=== PATIENT | male | born 1980 | race Caucasian/White ===

== ENCOUNTER 2025-02-15 13:08 | Inpatient (IN) | payer BC, SELFPAY ==
[2025-02-15] VITALS (29 sets, daily range): BP systolic 63–173; BP diastolic 40–106; BMI 39.4
--- NOTE | 2025-02-15 08:57 | ED.GENMED ---
History of Present Illness
<Castillo Viveros PA-C - Last Filed: 02/15/25 13:32>
General
Chief Complaint: Chest Pain
Time Seen by Provider: 02/15/25 08:44
History of Present Illness
History of Present Illness:
45-year-old male with history of hypertension and osx-zglgfle-jwbhjpasd diabetes presents to the emergency department for evaluation of exertional chest pain ongoing for the past several weeks. States he had a similar event in July, was
evaluated at [facility] emergency department, he states at that point he had normal labs and an echocardiogram that was unrevealing. He was noted to be hypertensive and hyperglycemic and was started on lisinopril and metformin at that time.
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 He did note that at that time he had gradual decrease in his hemoglobin and thus he took it upon himself to begin taking oral iron supplementation which she feels helped his exertional
symptoms. However over the past 2 to 3 weeks his symptoms have returned. Typically they resolve at rest. Today he was walking and carrying things at work when the pain began. Took 581 mg aspirin at work prior to arrival of EMS. Reports
consistent chest pressure at this point. No fevers or chills. Does note that he has a significant family history of precocious coronary disease including his father who had CABG x 3 before the age of 50.
Review of Systems
<Castillo Viveros PA-C - Last Filed: 02/15/25 13:32>
Review of Systems
Allergies reviewed?: Yes
All Other Systems: ROS reviewed and negative except as documented in HPI and ROS
Phy Exam
<Castillo Viveros PA-C - Last Filed: 02/15/25 13:32>
Physical Exam
Physical Exam:
GEN: Well appearing, NAD, WDWN
HEENT: Oral mucosa moist, no scleral icterus
Cardiac: Regular rate and rhythm, no murmurs
Lung: No respiratory distress, no tachypnea, lungs clear to auscultation bilaterally
MSK: No gross deformity or injuries
Skin: Good color, no pallor or jaundice, no rashes
Neuro: AO x3, moves all extremities freely
Psych: Calm, cooperative
Scores
<Castillo Viveros PA-C - Last Filed: 02/15/25 13:32>
Heart Score for Chest Pain Patients
STEMI patient?: No
History: Highly Suspicious
ECG: Normal
Age: >45 - <65 years
Risk Factors: >/= 3 Risk Factors or History of CAD
Troponin: >1 - <3 x Normal Limit
Heart Score for Chest Pain Patients: 6
Heart Score Risk: 20.3% MACE over next 6 weeks
Course
<Castillo Viveros PA-C - Last Filed: 02/15/25 13:32>
Orders/Labs/Results
Orders:
Orders
02/15/25 08:46
EKG [Electrocardiogram (*1)] Urgent
Reason for Study: Chest Pain
EKG- Treatment ONCE
02/15/25 08:50
CMP [Comprehensive Metabolic Panel] Urgent
Complete Blood Count/With Diff Urgent
Troponin I Urgent
02/15/25 08:55
Nitroglycerin Sublingual [Nitrostat (Sublingual)] 0.4 mg SL NOW STA
02/15/25 08:56
CR Chest - 2 Views Urgent
Comment:
Reason For Exam: chest pain
02/15/25 09:00
Nitroglycerin Sublingual [Nitrostat (Sublingual)] 0.4 mg .ROUTE .STK-MED ONE
02/15/25 10:36
EKG- Treatment ONCE
02/15/25 11:00
EKG [Electrocardiogram (*1)] Urgent
Reason for Study: Chest Pain
02/15/25 11:07
Troponin I Routine
02/15/25 12:09
Heparin 4,000 units IV NOW STA
Pharmacy Request to Place See Dose Instructions PO NOW STA
Discontinue all Active Warfarin orders?: Yes
Nursing to Place Non Medication Order As Directed
Physician Order: PTT 6 hours after initial start of Heparin infusion
02/15/25 12:14
Nitroglycerin Sublingual [Nitrostat (Sublingual)] 0.4 mg SL NOW STA
02/15/25 12:15
Heparin 69955 Units/250 ml 25,000 units in 250 ml IV PER PROTOCOL
Weight to be used for heparin protocol in kilograms (kg):: 114.1
Protocol:: Cardiac Tx/Acute Coronary
PTT Goal Range to be used:: PTT 73 to 111 seconds
Order type:: Initial
INITIAL Infusion Dose (UNITS/KG/hr) & then follow protocol:: 15 units/kg/hr
Infusion Dose in UNITS/hr & then follow protocol (UNITS/hr):: 1,500
INFUSION RATE in mL/hr & then follow protocol (mL/hr):: 15
PTT less than or equal to 64 seconds:: Increase rate by 200 units/hr (+ 2 mL/hr)
PTT 64.1 to 72.9 seconds:: Increase rate by 100 units/hr (+ 1 mL/hr)
PTT 73 to 111 seconds:: Target Range. No change in rate.
PTT 111.1 to 130.9 seconds:: Decrease rate by 100 units/hr (- 1 mL/hr)
PTT 131 to 199.9 seconds:: HOLD for 1 hr. Then decrease rate by 200 units/hr (- 2 mL/hr)
PTT greater than or equal to 200 seconds:: HOLD for 2 hrs & Notify Provider. Then decrease by 200 units/hr (-
2 mL/hr)
Lab follow-up:: Each change, PTT q6h until 2 consecutive are therapeutic. Then PTT
daily.
02/15/25 12:16
Consult Cardiology [CARDIOLOGY CONSULT] Urgent
Consulting Provider: Frank Wood
Was physician already notified: Yes
PTT Urgent
Comment: Obtain baseline before beginning heparin infusion if not already collected
02/15/25 12:19
Heparin 48666 Units/250 ml 25,000 units in 250 ml .ROUTE .STK-MED
02/15/25 12:47
Admit/Transfer Patient As Directed
Co-Sign Provider:
Level of Care: Inpatient admission
Assign to:: IVU
Physician / Group: Monserrat
Diagnosis: NTEMI
Reason for Hospitalization: NSTEMI
Expected length of stay greater than two midnights?: Yes
ELOS- Estimated Length of Stay in days: 3
I certify the patient meets the requirements for IP care: Yes
PRN Pain Medication Management As Directed
May give lesser potent ordered pain med per pt: Yes
preference::
Protocol:: Medication orders for pain may be administered in a
manner that supports deferring to patient preference
when the pt is:
- Requesting an ordered lesser potent pain medication.
Least to most potent pain medications are defined
as: acetaminophen < NSAID < tramadol < opioids
(morphine, oxycodone, hydromorphone).
- Requesting a lesser dose of the same medication IF
ORDERED.
- Requesting a less intrusive route of administration
if both routes are prescribed by the provider (PO <
IV).
02/15/25 12:49
Code Status As Directed
Resuscitation Status: Full Code
02/15/25 13:[address] See Dose Instructions IV DIRECTED
02/15/25 15:00
Troponin I Q6H
02/15/25 21:00
Troponin I Q6H
02/16/25 03:00
Troponin I Q6H
Abnormal Lab Results
02/15/25 02/15/25
08:50 11:07
Absolute Monos (auto) 0.7 H 10^3/uL
(0.1-0.6)
Glucose 131 H mg/dl
(70-99)
Troponin I 0.107 H* D ng/ml
02/15/25 08:50
02/15/25 08:50
Vital Signs
Initial and Last Documented VS:
Initial Vital Signs
Temp Pulse Resp BP Pulse Ox
98.0 F 72 18 163/92 98
02/15/25 08:42 02/15/25 08:42 02/15/25 08:42 02/15/25 08:42 02/15/25 08:42
Last Documented Vital Signs
Temp Pulse Resp BP Pulse Ox
98.0 F 81 13 150/84 96
02/15/25 08:42 02/15/25 12:30 02/15/25 12:30 02/15/25 12:25 02/15/25 09:30
<Teri Gibson MD - Last Filed: 02/15/25 12:46>
Orders/Labs/Results
Orders:
Orders
02/15/25 08:46
EKG [Electrocardiogram (*1)] Urgent
Reason for Study: Chest Pain
EKG- Treatment ONCE
02/15/25 08:50
CMP [Comprehensive Metabolic Panel] Urgent
Complete Blood Count/With Diff Urgent
Troponin I Urgent
02/15/25 08:55
Nitroglycerin Sublingual [Nitrostat (Sublingual)] 0.4 mg SL NOW STA
02/15/25 08:56
CR Chest - 2 Views Urgent
Comment:
Reason For Exam: chest pain
02/15/25 09:00
Nitroglycerin Sublingual [Nitrostat (Sublingual)] 0.4 mg .ROUTE .STK-MED ONE
02/15/25 10:36
EKG- Treatment ONCE
02/15/25 11:00
EKG [Electrocardiogram (*1)] Urgent
Reason for Study: Chest Pain
02/15/25 11:07
Troponin I Routine
02/15/25 12:09
Heparin 4,000 units IV NOW STA
Pharmacy Request to Place See Dose Instructions PO NOW STA
Discontinue all Active Warfarin orders?: Yes
Nursing to Place Non Medication Order As Directed
Physician Order: PTT 6 hours after initial start of Heparin infusion
02/15/25 12:14
Nitroglycerin Sublingual [Nitrostat (Sublingual)] 0.4 mg SL NOW STA
02/15/25 12:15
Heparin 22991 Units/250 ml 25,000 units in 250 ml IV PER PROTOCOL
Weight to be used for heparin protocol in kilograms (kg):: 114.1
Protocol:: Cardiac Tx/Acute Coronary
PTT Goal Range to be used:: PTT 73 to 111 seconds
Order type:: Initial
INITIAL Infusion Dose (UNITS/KG/hr) & then follow protocol:: 15 units/kg/hr
Infusion Dose in UNITS/hr & then follow protocol (UNITS/hr):: 1,500
INFUSION RATE in mL/hr & then follow protocol (mL/hr):: 15
PTT less than or equal to 64 seconds:: Increase rate by 200 units/hr (+ 2 mL/hr)
PTT 64.1 to 72.9 seconds:: Increase rate by 100 units/hr (+ 1 mL/hr)
PTT 73 to 111 seconds:: Target Range. No change in rate.
PTT 111.1 to 130.9 seconds:: Decrease rate by 100 units/hr (- 1 mL/hr)
PTT 131 to 199.9 seconds:: HOLD for 1 hr. Then decrease rate by 200 units/hr (- 2 mL/hr)
PTT greater than or equal to 200 seconds:: HOLD for 2 hrs & Notify Provider. Then decrease by 200 units/hr (-
2 mL/hr)
Lab follow-up:: Each change, PTT q6h until 2 consecutive are therapeutic. Then PTT
daily.
02/15/25 12:16
Consult Cardiology [CARDIOLOGY CONSULT] Urgent
Consulting Provider: Frank Wood
Was physician already notified: Yes
PTT Urgent
Comment: Obtain baseline before beginning heparin infusion if not already collected
02/15/25 12:19
Heparin 19801 Units/250 ml 25,000 units in 250 ml .ROUTE .STK-MED
02/15/25 12:47
Admit/Transfer Patient As Directed
Co-Sign Provider:
Level of Care: Inpatient admission
Assign to:: IVU
Physician / Group: Monserrat
Diagnosis: NTEMI
Reason for Hospitalization: NSTEMI
Expected length of stay greater than two midnights?: Yes
ELOS- Estimated Length of Stay in days: 3
I certify the patient meets the requirements for IP care: Yes
PRN Pain Medication Management As Directed
May give lesser potent ordered pain med per pt: Yes
preference::
Protocol:: Medication orders for pain may be administered in a
manner that supports deferring to patient preference
when the pt is:
- Requesting an ordered lesser potent pain medication.
Least to most potent pain medications are defined
as: acetaminophen < NSAID < tramadol < opioids
(morphine, oxycodone, hydromorphone).
- Requesting a lesser dose of the same medication IF
ORDERED.
- Requesting a less intrusive route of administration
if both routes are prescribed by the provider (PO <
IV).
02/15/25 12:49
Code Status As Directed
Resuscitation Status: Full Code
02/15/25 13:[address] See Dose Instructions IV DIRECTED
02/15/25 15:00
Troponin I Q6H
02/15/25 21:00
Troponin I Q6H
02/16/25 03:00
Troponin I Q6H
Abnormal Lab Results
02/15/25 02/15/25
08:50 11:07
Absolute Monos (auto) 0.7 H 10^3/uL
(0.1-0.6)
Glucose 131 H mg/dl
(70-99)
Troponin I 0.107 H* D ng/ml
02/15/25 08:50
02/15/25 08:50
Vital Signs
Initial and Last Documented VS:
Initial Vital Signs
Temp Pulse Resp BP Pulse Ox
98.0 F 72 18 163/92 98
02/15/25 08:42 02/15/25 08:42 02/15/25 08:42 02/15/25 08:42 02/15/25 08:42
Last Documented Vital Signs
Temp Pulse Resp BP Pulse Ox
98.0 F 81 13 150/84 96
02/15/25 08:42 02/15/25 12:30 02/15/25 12:30 02/15/25 12:25 02/15/25 09:30
<Castillo Viveros PA-C - Last Filed: 02/15/25 13:32>
MDM/Problems Addressed
MDM/Problems Addressed:
45-year-old male presents with exertional chest pain that seems to be worsening over the past several weeks. His initial EKG was nonischemic and initial troponin negative thus he was kept in the emergency department for reevaluation and repeat
cardiac enzymes and EKG. While repeat EKG is unchanged his cardiac enzymes became markedly elevated. His pain did improve after a repeat dose of nitroglycerin however he had a vagal episode resulting in hypotension and bradycardia, was treated
with IV fluids with rapid improvement. He was seen by hospitalist as well as cardiology at the bedside and the plan was made to take the patient for cardiac catheterization later today. Maintained on IV heparin in the ED.
<Castlilo Viveros PA-C - Last Filed: 02/15/25 13:32>
Comment
Comment:
EKG independently interpreted by me shows normal sinus rhythm at a rate of [address] changes concerning for ischemia
*Critical Care Note
Total Time (30-74mins, 75-104mins- exclusive of procedures): 50 minutes
comment:
Critical care time: 50 minutes
Critical care time was exclusive of: Separately billable procedures, treating other patients, and teaching time
Critical care was necessary to treat or prevent imminent or life-threatening deterioration of the following conditions: NSTEMI
Critical care time spent personally by me on the following activities:
[x] Review of old charts
[x] Obtaining history from patient or surrogate
[x] Ordering and review of the laboratory studies
[x] Ordering and review of radiographic studies
[x] Ordering and performing treatments and interventions
[x] Patient patient's response to treatment
[x] Development of treatment plan with patient or surrogate
<Castillo Viveros PA-C - Last Filed: 02/15/25 13:32>
Update Note
Update Note:
Reviewed MyChart records on patient's phone from [facility] in July. Initial high-sensitivity troponin level of 34 down trended to 27 while in the ED. He did have a transthoracic echocardiogram showing grade 1 diastolic
dysfunction and mild aortic sclerosis without stenosis or regurgitation, EF of 60 to 65%
ED Attending Note
<Castillo Viveros PA-C - Last Filed: 02/15/25 13:32>
-
Portions of this chart may have been created with voice recognition software.� Occasional wrong word or��sound alike� substitutions may have occurred due to the inherent limitations of voice recognition software.
<Teri Gibson MD - Last Filed: 02/15/25 12:46>
ED Attending Note
Patient seen and examined by attending physician: Yes
I performed the substantive portion of visit, reviewed & personally made and approve the management plan that is documented in note by myself or MILA.: Yes
ED Attending Note:
Patient complains of chest tightness on arrival. I evaluated the patient after he received a second nitroglycerin. Within minutes of the second nitroglycerin, he reports feeling clammy and lightheaded. Patient became bradycardic. Patient appears
pale and flushed. Heart sounds bradycardic but regular. Lungs are clear. Patient may have had a hypotensive episode and a vagal response due to the nitroglycerin. However, EKG at this time, which is his third, shows biphasic T waves and ST
depressions in lateral leads. Patient reports that his chest pain is improved now and certainly no worse.
Discharge Plan
Departure
Patient Disposition: Admit
Date of Disposition: 02/15/25
Time of Disposition: 12:29
Admit to: IVU
Presentation/result/management discussed w/ accepting MD/DO: Hospitalist
Discharge Problem:
Acute non-ST elevation myocardial infarction (NSTEMI)
Interventions
Interventions:
*Risk Screen - Suicide Last Done: 02/15/25 08:42
*General Assessment Last Done: 02/15/25 09:05
*Neglect/Abuse Screening Last Done: 02/15/25 08:42
*ED- Fall Risk Assessment Last Done: 02/15/25 09:05
*ED COVID-19 Vaccine History Last Done: 02/15/25 08:42
ED- Cardiac Assessment Last Done: 02/15/25 09:05
[2025-02-15 09:01] LABS: % Basophils 1.4 % (0-2); % Eosinophils 5.9 % (0-6); % Immature Granulocytes 0.2 % (0-0.5); % Lymphocytes 24.1 % (20.5-51.1); % Monocytes 8.2 % (1.7-9.3); % Neutrophils 60.2 % (42.2-75.2); Absolute Basophils 0.1 10^3/uL (0-0.2); Absolute Eosinophils 0.5 10^3/uL (0-0.7); Absolute Monocytes 0.7 10^3/uL (0.1-0.6); Absolute Neutrophils 5.1 10^3/uL (1.4-6.5); Hematocrit 43.3 % (39.0-52.0); Hemoglobin 14.6 g/dL (13.0-18.0); Mean Corp Hgb Conc. 33.7 g/dL (33.0-37.0); Mean Corpuscular Hgb 29.3 pg (27.0-31.0); Mean Corpuscular Volume 86.8 fL (80.0-94.0); Mean Platelet Volume 9.2 fL (7.4-10.4); Nucleated Red Blood Cells % 0 % (-); Platelet Count 268 10^3/uL (130-400); Red Blood Cell Count 4.99 10^6/uL (4.70-6.10); White Blood Cell Count 8.4 10^3/uL (4.8-10.8)
[2025-02-15] MEDS: NITROSTAT (SUBLINGUAL) 0.4 MG SL ×2 (09:03→12:25)
[2025-02-15 09:20] LABS: ALT (SGPT) 27 U/L (0-50); AST (SGOT) 31 U/L (17-59); Albumin 4.3 g/dl (3.5-5.0); Alkaline Phosphatase 70 U/L (38-126); Blood Urea Nitrogen 20 mg/dl (9-20); Calcium 9.2 mg/dl (8.4-10.2); Carbon Dioxide 27 mmol/L (22-30); Chloride 105 mmol/L (98-107); Estimated Creatinine Clearance > 125 ml/min; Glucose 131 mg/dl (70-99); Potassium 4.4 mmol/L (3.5-5.1); Sodium 138 mmol/L (135-145); Total Bilirubin 0.8 mg/dl (0.2-1.3); Total Protein 7.4 g/dl (6.3-8.2); eGFR > 60.00
[2025-02-15 09:29] LABS: Troponin I 0.019 ng/ml
[2025-02-15 11:59] LABS: Troponin I 0.107 ng/ml
[2025-02-15] MEDS: HEPARIN 25000 UNITS/250 ML IV (12:25)
[2025-02-15] MEDS: HEPARIN 4000 UNITS IV (12:29)
[2025-02-15 12:43] LABS: APTT 32.2 Sec (23.4-35.0)
--- NOTE | 2025-02-15 12:54 | HPS.HSE ---
Addendum entered and electronically signed by Guillermo German MD 02/15/25 15:35:
Patient presented with substernal squeezing chest pain that responded to SL NTG
Seen independently and agree with PA note
Lungs clear
CV reg
no chest wall pain
Abd soft, nontender
Ext no edema
EKG lateral ST changes
trop 0.019-->0.107
Imp: probable ACS
poorly controlled NIDDM, +family hx of CAD (father CABG age 49), hyperlipidemia
P:urgent cardio consult
plan heart cath
will need to optimize overall medical condition post cardio evaluation
Original Note:
Family Physician
-
Family Physician: Guillermo Munson
Chief Complaint
-
Chest Pain
History of Present Illness
Patient is a 45 y/o male past medical history of hypertension, diabetes mellitus and obesity who presents with chest pain. Patient report he has been experiencing chest pain for the past few nights, but notes it usually goes away with rest. Today
after arriving at work patient developed a tightness across his chest pain which after about 20-25 minutes did not resolve prompting him to come to the emergency department for evaluation. Upon my evaluation patient is complaining of dizziness and
feeling very sweaty. He is noted to be mildly bradycardic and hypotensive following second dose of sublingual nitroglycerine given in the emergency department.
Medical History
Past Medical History
Past Medical History: Reports Other
Additional Past Medical History:
Diabetes Mellitus, Type II
Essential Hypertension
Class II Obesity
Past Surgical History: Reports Other
Additional Past Surgical History:
Urinary Dilation
Social History
Tobacco: Former Smoker (Quit in his early 20s)
Family History
Family History: Other (Father: CAD with bypass in late 40s)
Allergies / Home Medications
Allergies reflects when Allergies were last updated in [employer].
Home Medications with original date entered in [employer]
Allergy/Medication List:
Allergies
Allergy/AdvReac Type Severity Reaction Status Date / Time
No Known Allergies Allergy Verified 02/15/25 08:57
Home Medications
aspirin 81 mg tablet,delayed release 81 mg PO DAILY 02/15/25
lisinopril 10 mg tablet 10 mg PO DAILY 02/15/25
Review of Systems
-
A 12 point ROS was completed and negative except as noted: Yes
Constitutional: Denies Fever
Respiratory: Reports Trouble Breathing; Denies Cough
Cardiac: Reports Chest Pain and Diaphoresis; Denies Palpitations
Neurological: Reports Dizzy
Physical Exam
Vital Signs
Vital Signs
Temp Pulse Resp BP Pulse Ox
98.0 F 81 13 150/84 96
02/15/25 08:42 02/15/25 12:30 02/15/25 12:30 02/15/25 12:25 02/15/25 09:30
Physical Exam
General: Obese and Other (Appears pale and diaphoretic )
HEENT: Anicteric and Moist mucous membranes
Respiratory: Clear and Non Labored Respirations
Cardiac: S1/S2, Regular Rhythm and Bradycardia
GI: Soft and Non Tender
Rectal: Deferred by Provider
Musculoskeletal: No Clubbing and No Cyanosis
Skin: Warm and Dry
Neuro: Awake, Alert, Oriented and Nonfocal/grossly intact
Psych: Calm
Laboratory Results
-
02/15/25 08:50
02/15/25 08:50
Laboratory Results
APTT 32.2 Sec (23.4-35.0) 02/15/25 12:16
Total Bilirubin 0.8 mg/dl (0.2-1.3) 02/15/25 08:50
AST 31 U/L (17-59) 02/15/25 08:50
ALT 27 U/L (0-50) 02/15/25 08:50
Alkaline Phosphatase 70 U/L (38-126) 02/15/25 08:50
Troponin I 0.107 ng/ml H* D 02/15/25 11:07
Data Reviewed
-
Lab Data: Labs Reviewed by me
Impression/Plan
-
Non-ST Elevation NM
-Urgent Cardiology Consult
-Plan for cardiac cath this afternoon
-Continue heparin drip
-Trend troponin
-Check Fasting Lipid Panel and HgbA1c
Diabetes Mellitus, Type II
-Previously on metformin
-Patient reports prior HgbA1c in the 10s range - Check HgbA1c
-May need insulin based on HgbA1c
-Monitor sugars and continue coverage insulin
Essential Hypertension
-Blood pressure running on the low side
-Hold lisinopril for now
Class II Obesity
-Affects all aspects of care
-Encourage weight loss
-Dietary Consult
DVT proph: Heparin drip
Code Status: Full Code
--- NOTE | 2025-02-15 13:11 | CON.CAR ---
Addendum entered and electronically signed by Frank Wood MD 02/15/25 14:29:
45 yo male with PMH of HTN, hyperlipidemia, DM, morbid obesity, tobacco history, FH of early CAD, is admitted with exertional chest pain. Happened last night, then again this AM. Currently chest pain free after nitro. He reports a holistic
approached to many of his medical issues, and stopped metformin on his own. Exam with RRR, no murmurs, no edema. TnI 0.107. EKG with NSR, biphasic T wave anterior leads.
NSTEMI. ASA 324mg, heparin drip. Cath today. Echo this admission.
BP dropped with nitro. Will wait until after cath to add metoprolol. He already takes lisinopril for HTN.
Start statin.
We discussed that he will need to take prescription meds to manage his health issues.
Original Note:
Consultation
Consultation Request
Date/Time Consultation Requested: 02/15/25 1216
Date/Time Consultation Performed: 02/15/25 1345
Requesting Provider: Castillo DOUGLAS
Performing Provider: Danette ARIAS for Dr. Wood
Reason for Consultation: NSTEMI
Medical History
-
Chief Complaint: Chest discomfort
History of Present Illness:
45 y/o male with HTN, HLD, DM, and obesity who is here for evaluation of chest discomfort that he noted last night with exertion, then today with minimal exertion. It felt like a squeezing across his chest. He was given nitro, which caused vagal
response and BP dropped. He is CP free at the time of my assessment. He took full dose aspirin today (total of 405 mg- 5 baby ASA). Of note, he had CP in Fall and went to [facility], where he saw Dr. Childress, but details of this are not clear.
He denies any personal hx of CAD, but father had premature CAD. He is in no distress at the time of my assessment. Troponin is 0.1. EKG unremarkable.
Past Medical History
Past Medical History: HTN, Hypercholesterolemia and NIDDM
Social History
Tobacco: Former Smoker
Alcohol: Occasional
Drug: None
Personal:
Living: With Family
Family History
Family History: Early CAD (dad)
Allergies / Home Medications
Allergy/AdvReac Type Severity Reaction Status Date / Time
No Known Allergies Allergy Verified 02/15/25 08:57
�Medication �Instructions �Recorded �Confirmed �Type
aspirin 81 mg tablet,delayed 81 mg PO DAILY 02/15/25 02/15/25 History
release
lisinopril 10 mg tablet 10 mg PO DAILY 02/15/25 02/15/25 History
Review of Systems
-
History Source: Patient
All other systems: Negative unless noted
Cardiac: Chest Pain
Physical Exam
Vital Signs
Temp Pulse Resp BP Pulse Ox
98.0 F 81 13 150/84 96
02/15/25 08:42 02/15/25 12:30 02/15/25 12:30 02/15/25 12:25 02/15/25 09:30
Lab Results
02/15/25 08:50
02/15/25 08:50
Troponin I 0.107 ng/ml H* D 02/15/25 11:07
Physical Exam
General: Well Developed, Well Nourished and No Apparent Distress
HEENT: Normocephalic and Anicteric
Respiratory: Clear and Non Labored Respirations
Cardiac: Regular Rhythm
Musculoskeletal: No Edema
Skin: Warm and Dry
Neuro: AO x 3
Psych: Calm
Impression / Plan
-
NSTEMI:
-this diagnosis is threat to life
-I have confirmed that he took full dose aspirin today. Continue ASA. Start statin. Continue IV heparin, which requires intensive monitoring.
-trend EKG's and trops
-obtain echo
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
HTN:
-continue ACEI and monitor
HLD:
-check lipids
-initiate statin
DM:
-took himself off metformin
-check hgbA1C
-management per primary team
Obesity:
-would benefit from weight loss moving forward
Data Reviewed
-
EKG: Tracing Personally Visualized and interpreted (NSR)
Radiology: Report Reviewed by me (No evidence of active cardiopulmonary disease.)
Medical Tests (Nuc Med, Echo etc): Other (echo ordered)
Labs: Labs Reviewed by me
Scores
MARY ALICE for NSTEMI
Age >/= 65: No
>/=3 CAD risk factors-HTN,High Chol,Fam hx CAD,DM,Smoker: Yes
Known CAD (stenosis >/=50%): No
ASA use in past 7 days: Yes
Severe angina (>/= 2 episodes in 24 hrs): Yes
EKG ST Changes >/= 0.5mm: No
Positive cardiac marker: Yes
Score: 4
Risk at 14 days-mortality, new/recurrent SC, severe ischemia: Intermediate Risk- 20% Risk at 14 days- all cause mortality, new or recurrent SC, or severe recurrent ischemia requiring urgent revascularization
--- NOTE | 2025-02-15 16:46 | CM ---
Chart reviewed. Patient is independent of ADLS, lives with his in a [address], 1 KEVIN, 0 DME. Plan is for the patient to return home. CM to follow
--- NOTE | 2025-02-15 18:57 | ITS.CL.CATH ---
Assistant Program Director - Catheterization
Cardiac Catheterization
Procedure Report:
CARDIAC CATHETERIZATION REPORT
Date of Procedure: 02/15/2025
Referring: Frank Wood M.D., Ph.D.
INDICATION: Non-ST elevation myocardial infarction.
PROCEDURE:
1. Left heart catheterization.
2. Coronary angiography.
A total of 22 minutes of procedural/moderate sedation was utilized. An independent medical insurance claims processor was present to assist with and help manage the patient's level of consciousness and physiologic status.
ACCESS:
1. 6 [place] right rate artery using a modified Seldinger technique delete.
CATHETERS:
1. 5 [place] JR4.
2. 5 [place] JL 3.5.
HEMODYNAMIC DATA
Weight (kg): 113.9
AO (s/d/x, mmHg): 138/92/113
LV (s/x mmHg): 138/16
LEFT VENTRICULOGRAPHY: Not performed.
CORONARY ANGIOGRAPHY
Dominance: Right.
Left Main: Normal size, bifurcating vessel. There is no coronary artery disease.
LAD: Normal size vessel giving rise to 2 notable diagonals. There is an ulcerated, hazy 90% lesion in the ostium of the left anterior descending artery that spans the origin of the first diagonal.
Ramus: Congenitally absent
Circumflex: Normal size, nondominant vessel giving rise to 2 obtuse marginals. There is no coronary artery disease.
RCA: Normal size, dominant vessel. There is a 90% lesion in the distal RCA, immediately proximal to the origin of the RPDA.
INTERVENTION(S)
None.
Closure Device: Vascular band.
Radiation (mGy): 592.75
DAP (cm2.Gy): 42.3052
Fluoroscopy time (minutes): 2.8
CONCLUSIONS
1. Right dominant circulation with a 90% lesion in the distal RCA immediately proximal to the origin of the RPDA and a hazy, ulcerated 90% lesion in the ostium of the left anterior descending that spans the origin and involves the first diagonal.
2. Mildly elevated filling pressures (LVEDP = 16 mmHg at 113.9 kg).
RECOMMENDATIONS:
1. Expectant management after cardiac catheterization via right rate approach.
2. Limited weight bearing on the right for one week.
3. Consultation with CT surgery regarding optimal revascularization strategy given two-vessel disease in a diabetic patient involving the proximal LAD.
4. Echocardiogram ordered and pending.
5. Restart heparin drip once vascular band has been removed.
6. OMT/GDMT as hemodynamics will tolerate.
7. Aggressive secondary prevention with high-dose, high potency statin.
8. Aggressive treatment of diabetes.
Copy to: Frank Wood M.D., Ph.D.
Norman Espinosa DO, FACC, FACP
[2025-02-15] MEDS: CRESTOR 20 MG PO (19:18)
[2025-02-15 19:28] LABS: Glucose - Point of Care 99 mg/dl (70-99)
[2025-02-15 21:54] LABS: Glucose - Point of Care 153 mg/dl (70-99)
[2025-02-15 22:00] LABS: APTT 31.3 Sec (23.4-35.0)
[2025-02-16] VITALS (8 sets, daily range): BP systolic 118–142; BP diastolic 67–90; BMI 38.8
[2025-02-16 05:25] LABS: Hematocrit 38.7 % (39.0-52.0); Hemoglobin 12.6 g/dL (13.0-18.0); Mean Corp Hgb Conc. 32.6 g/dL (33.0-37.0); Mean Corpuscular Hgb 28.6 pg (27.0-31.0); Mean Platelet Volume 9.8 fL (7.4-10.4); Platelet Count 275 10^3/uL (130-400); Red Cell Dist. Width 13.2 % (11.5-14.5); White Blood Cell Count 9.9 10^3/uL (4.8-10.8)
[2025-02-16 05:47] LABS: Blood Urea Nitrogen 13 mg/dl (9-20); Calcium 8.9 mg/dl (8.4-10.2); Carbon Dioxide 29 mmol/L (22-30); Chloride 106 mmol/L (98-107); Estimated Creatinine Clearance > 125 ml/min; Glucose 104 mg/dl (70-99); HDL Cholesterol 34 mg/dl; LDL Cholesterol, Calculated 189 mg/dl; Potassium 4.2 mmol/L (3.5-5.1); Sodium 140 mmol/L (135-145); Total Cholesterol 265 mg/dl (50-199); Triglyceride 212 mg/dl (10-149); Very Low Density Lipoprotein 42 mg/dl (0-30); eGFR > 60.00
--- NOTE | 2025-02-16 05:48 | PTCARENOTE ---
Pt NSR on monitor. Denies chest pain or any discomfort. Heparin gtt restarted per MD order. pt independent in the room, call matthews in reach
[2025-02-16] MEDS: ASPIR LOW (ENTERIC COATED) 81 MG PO (07:36)
--- NOTE | 2025-02-16 07:57 | W.PN.CD ---
Today's Communication / Plan
-
Echocardiogram.
CT surgery consult.
HbA1c pending.
Start carvedilol 3.125 mg BID.
Impression / Plan
-
Impression/Plan: 45 y/o male with obesity, HTN, HLD and DM admitted with NSTEMI.
#NSTEMI
-Acute, this diagnosis is threat to life.
-Troponin up to 3.42.
-Cath shows 2V CAD with ostial LAD.
-Echocardiogram pending.
-CT surgery consulted for heart team discussion.
-Start carvedilol 3.125 mg BID.
#HTN
-Chronic, stable.
-Continue ACEI.
-Start carvedilol 3.125 mg BID.
#HLD
-Chronic, stable.
-Total cholesterol = 265, LDL = 189, HDL = 34, Triglycerides = 212.
-High dose, high potency statin.
-Goal LDL < 55.
#DM
-Chronic.
-HbA1c pending.
-Took himself off metformin.
-Management per primary team.
#Obesity
-Chronic.
-He would benefit from weight loss moving forward.
Subjective/Interval History:
Cath yesterday shows 2V CAD including ostial LAD.
Echocardiogram pending.
DATA:
Cardiac Catheterization, 02/15/2025:
CONCLUSIONS
1. Right dominant circulation with a 90% lesion in the distal RCA immediately proximal to the origin of the RPDA and a hazy, ulcerated 90% lesion in the ostium of the left anterior descending that spans the origin and involves the first diagonal.
2. Mildly elevated filling pressures (LVEDP = 16 mmHg at 113.9 kg).
Physical Exam
Vital Signs/Labs
Vital Signs
Temp Pulse Resp BP Pulse Ox
36.9 C 65 16 118/67 97
02/16/25 04:11 02/16/25 04:11 02/16/25 04:11 02/16/25 04:11 02/16/25 04:11
02/14/25 02/15/25 02/16/25
11:59 11:59 11:59
Actual Weight 114.1 kg 112.4 kg
02/16/25 04:30
02/16/25 04:30
APTT 55.0 Sec (23.4-35.0) H 02/16/25 04:30
Triglycerides 212 mg/dl (10-149) H 02/16/25 04:30
LDL Cholesterol, Calc 189 mg/dl 02/16/25 04:30
VLDL Cholesterol, Calc 42 mg/dl (0-30) H 02/16/25 04:30
HDL Cholesterol 34 mg/dl 02/16/25 04:30
LAB Results
02/15/25 02/15/25 02/15/25
08:50 11:07 17:24
Troponin I 0.019 0.107 H* D 1.750 H* D
02/15/25 02/16/25
21:33 04:30
Troponin I 2.870 H* D 3.420 H*
Physical Exam
Constitutional: No acute distress and Comfortable
EENT: Anicteric and Moist mucous membranes
Cardiovascular: Rhythm & rate is regular, Pedal edema is absent, JVD pressure is normal, S1S2 is normal and Murmur/rub/gallop absent
Respiratory: Respiratory effort normal, Lungs clear to auscul., Wheeze Absent, Crackles Absent and Rhonchi Absent
GI: Soft, Distention absent, Flat, Non tender and Normal bowel sounds
Neuro/Psych: AO x 3
Other: Cath Site (Right radial access site is C/D/I.)
Data Reviewed
-
Date of Service: February 16, 2025
Medical Decision Making: Reviewed Test Results, Independent Historian Assessment, Test Interpretation and Review of Case with other Provider
EKG: Tracing Personally Visualized and interpreted and Report Reviewed by me
Echo: Ordered by me
Medical Tests (PFT, Pathology etc): Image Personally Visualized and interpreted, Report Reviewed by me, Discussed with Physician, Discussed with Nurse, Discussed with Patient and Discussed with Family
Labs: Labs Reviewed by me
[2025-02-16 09:00] LABS: Glucose - Point of Care 120 mg/dl (70-99)
[2025-02-16 09:30] LABS: Glycohemoglobin (HgbA1c) 6.1 % (4.0-5.6)
--- NOTE | 2025-02-16 10:27 | CONSULT.CT ---
Consultation
-
Date/Time Consultation Requested: 02/15/25
Date/Time Consultation Performed: 02/16/25
Requesting Provider: Norman Espinosa
Performing Provider: Meg ARIAS for Lorenzo Esparza MD
Reason for Consultation: CABG evaluation
Patient History
Physicians
Family Physician: Guillermo Munson
Outpatient Label Press Operator: none prior to admission
Inpatient Label Press Operator: Norman Espinosa MD
History of Present Illness
45-year-old, wjrqr-ztsm-ppchuyva male with history of hypertension and zjx-uaumjbw-mlbisyqgj diabetes was admitted via the emergency department on 02/15/25 for evaluation of exertional 'squeezing' chest pain ongoing for the past several weeks.
Patient reports a similar event in July, and was evaluated at [facility] emergency department,where he reportedly had normal labs and echocardiogram. At that time, he was noted to be hypertensive and hyperglycemic and was started on
lisinopril and metformin. He did not follow-up with a kitchen and counter worker as an outpatient. He did note that at that time he had gradual decrease in his hemoglobin and thus he took it upon himself to begin taking oral iron supplementation which he feels
helped his exertional symptoms. Patient stopped his metformin due to reading about significant side effects. Patient reports over the past 3 weeks he has experienced exertional chest pressure radiating to his back with walking. Pain resolves with
rest. Patient sought help on 02/15 due to pain lasting more than 25 minutes after sitting. Patient has had significant family history of coronary disease (father had CABG x 3 before age 50). Patient ruled in for NSTEMI with max troponin 3.420 and
was treated with IV heparin. He was given nitro, which caused vagal response. Patient was taken for left heart cath which reported two-vessel coronary disease (LAD and RCA). Patient is pain-free today and hesitant to proceed with surgery.
Pertinent negatives: Denies CVA/TIA, dysphagia, asthma/COPD, hepatitis, surgery or radiation to the thorax, DVT/PE, lower extremity vein stripping, cancer
Past Medical History
Past Medical History: Angina, HTN, NIDDM and Other (UTIs due to ureteral strictures requiring dilation)
Family History
Family Medical History: Early CAD (father-CABG before age 50)
Social History
Alcohol: None
Drug: None
Tobacco: Former Smoker (quit in his 20s)
Personal:
Living: With Family
Employment: Employed
Allergies
Allergy/AdvReac Type Severity Reaction Status Date / Time
No Known Allergies Allergy Verified 02/15/25 08:57
Home Medications
�Medication �Instructions �Recorded �Confirmed �Type
aspirin 81 mg tablet,delayed 81 mg PO DAILY Blood Clot 02/15/25 02/15/25 History
release Prevention/Tx
lisinopril 10 mg tablet 10 mg PO DAILY Blood Pressure 02/15/25 02/15/25 History
Review of Systems
-
History Source: Patient
General: Reports No Symptoms
HEENT: Reports No Symptoms
Respiratory: Reports No Symptoms
Cardiac: Reports Chest Pain (Resolved since admission)
Abdomen/GI: Reports No Symptoms
: Reports Other (UTIs due to ureteral strictures)
Musculoskeletal: Reports No Symptoms
Skin: Reports No Symptoms
Neurological: Reports No Symptoms
Vascular: Reports No Symptoms
Physical Exam
Vital Signs
Temp 98.3 F 02/16/25 07:38
Temp route: Oral 02/16/25 07:38
Pulse 79 02/16/25 10:00
Rhythm: Normal sinus rhythm 02/16/25 07:36
Resp Rate 18 02/16/25 07:38
Blood pressure 136/84 02/16/25 07:36
Blood pressure extremity used: Right upper arm 02/16/25 07:38
Position: Sitting 02/16/25 07:38
MAP (cuff-Chitra Monitor) 98 02/16/25 07:36
SaO2 98 02/16/25 07:38
Oxygen Mode of Delivery Room air 02/16/25 07:38
Acceptable pain level during hospitalization? 1 02/15/25 08:42
Can the patient verbally communicate their pain? Yes 02/16/25 07:36
Pain scale ratin 02/15/25 19:21
Actual Weight 112.4 kg 02/16/25 04:36
Body Mass Index (BMI) 38.8 02/16/25 04:36
Labs
02/16/25 04:30
02/16/25 04:30
APTT 55.0 Sec (23.4-35.0) H 02/16/25 04:30
Hemoglobin A1c 6.1 % (4.0-5.6) H 02/16/25 04:30
Troponin I 3.420 ng/ml H* 02/16/25 04:30
Diagnostic Studies
Left heart Cath 02/15/25:
Left Main: no disease
LAD: Ulcerated, hazy 90% lesion in the ostium of the left anterior descending artery that spans the origin of the first diagonal.
Ramus:Congenitally absent
Circumflex: no disease.
RCA: 90% lesion in the distal RCA, immediately proximal to the origin of the RPDA.
Exam
General: Well Developed and Well Nourished
HEENT: Normocephalic, Anicteric, Moist Mucous Membranes and PERRLA
Respiratory: Clear
Cardiac: S1/S2 and Regular Rhythm
GI: Soft, Non Tender and Normal Bowel Sounds
Rectal: Deferred by Provider
Skin: Warm and Dry
Neuro: AO x 3, No Motor Deficits and Nonfocal/Grossly Intact
Lymph: No Lymphadenopathy
Psych: Calm
Assessment / Plan
-
45-year-old male with two-vessel coronary disease (LAD and RCA)
- Surgeon to review images and discuss case with patient/family and cardiology
-Preop diagnostics ordered including left palmar arch study
-TTE pending
-Patient fearful of receiving propofol as reports mother after receiving this drug
Data Reviewed
-
EKG: Report Reviewed by me and Discussed with Physician
Irrigation System Installer: Report Reviewed by me and Discussed with Physician
Radiology: Report Reviewed by me and Discussed with Physician
Labs: Labs Reviewed by me and Discussed with Physician
[2025-02-16] MEDS: HEPARIN 25000 UNITS/250 ML IV (10:31)
[2025-02-16] MEDS: COREG 3.125 MG PO ×2 (10:35→21:11)
[2025-02-16 11:06] LABS: APTT 54.3 Sec (23.4-35.0)
[2025-02-16 12:14] LABS: Glucose - Point of Care 98 mg/dl (70-99)
[2025-02-16 12:40] LABS: INR 0.99; PT 13.4 Sec (11.4-14.6)
[2025-02-16 12:57] LABS: ALT (SGPT) 27 U/L (0-50); AST (SGOT) 45 U/L (17-59); Albumin 4.2 g/dl (3.5-5.0); Alkaline Phosphatase 78 U/L (38-126); Direct Bilirubin 0.2 mg/dl (0.0-0.4); Total Bilirubin 0.8 mg/dl (0.2-1.3); Total Protein 6.8 g/dl (6.3-8.2)
--- NOTE | 2025-02-16 13:29 | PTCARENOTE ---
02/16/2025 DIABETES EDUCATION
I met with Alvin to review diabetes management, states he was diagnosed with T2D in July 2024 with A1c of 10.2. Was prescribed Metformin, and weaned himself off due to perceived side effects in October,. Admits to not having side
effects himself.
States he prefers holistic measures, changed his diet and last HbA1c prior to inpatient visit was 6.7%, with A1c currently at 6.1%. He checks BS TID at home, is to have a PCP follow up on 02/23/2025.
He states he takes the supplements of Chromium and Berberine for DM control and also Inositol. I educated Mr. Almendarez to ensure all providers are aware of his supplements as they are not regulated, may cause side effects and may interfere with
current medications. RN and MD notified of supplements.
Encouraged patient to follow up with his PCP for post d/c appointment and to monitor medication and blood glucose levels. Information provided on the outpatient DSME program. Patient verbalized understanding.
--- NOTE | 2025-02-16 15:48 | W.PN.HOSP.TC ---
Today's Communication/Plan
-
For potential CABG
Assessment / Plan
Assessment / Plan
Non-ST Elevation HI
-Urgent Cardiology Consult
results of testing reviewed with pt and sig other in room
-Plan for cardiac cath this afternoon
-Continue heparin drip
-Trend troponin
0.107-->1.75-->2.87-->3.42
-Check Fasting Lipid Panel
chol 265/trig 212/ldl 189/hdl 34
started on Crestor 20 mg daily
HgbA1c 6.1%
heart cath: 1. Right dominant circulation with a 90% lesion in the distal RCA immediately proximal to the origin of the RPDA and a hazy, ulcerated 90% lesion in the ostium of the left anterior descending that spans the origin and involves the
first diagonal.
2. Mildly elevated filling pressures (LVEDP = 16 mmHg at 113.[address] surg consulted for potential CABG
Diabetes Mellitus, Type II
-Previously on metformin
-Patient reports prior HgbA1c in the 10s range - Check HgbA1c
-May need insulin based on HgbA1c
-Monitor sugars and continue coverage insulin
Essential Hypertension
-Blood pressure running on the low side
-Hold lisinopril for now
Class II Obesity
-Affects all aspects of care
-Encourage weight loss
-Dietary Consult
DVT proph: Heparin drip
Code Status: Full Code
Anticipated Discharge: > 48 hours
Subjective/Interval History
-
Date of Service: February 16, 2025
No chest pain at this time
Objective Data
-
Labs:
Laboratory Results
02/16/25 02/16/25 02/16/25
04:30 10:46 18:00
WBC 9.9
Hgb 12.6 L
Hct 38.7 L
Plt Count 275
PT 13.4
INR 0.99
APTT 55.0 H 54.3 H Pending
Sodium 140
Potassium 4.2
Chloride 106
Carbon Dioxide 29
BUN 13
Creatinine 0.7
Glucose 104 H
Calcium 8.9
Total Bilirubin 0.8
AST 45
ALT 27
Alkaline Phosphatase 78
Vital Signs:
Vital Signs
Temp Pulse Resp BP Pulse Ox
98.5 F 68 18 125/82 98
02/16/25 12:03 02/16/25 10:35 02/16/25 12:03 02/16/25 10:35 02/16/25 12:03
I&O
02/15/25 02/16/25 02/17/25
06:59 06:59 06:59
Intake Total 525 / 525
Balance 525 / 525
Review of Systems
-
History Source: Patient and Family (sig other)
Respiratory: Denies Cough or Hemoptysis
Cardiac: Denies Chest Pain
Abdomen/GI: Denies Abdominal Pain
Genitourinary: Reports No Symptoms
Musculoskeletal: Reports No Symptoms
Endocrine: Reports No Symptoms
Physical Exam
-
General: Well Developed, Well Nourished and No Apparent Distress
HEENT: Normocephalic, Atraumatic and Moist Mucous Membranes
Respiratory: Clear to Auscultation; Negative Wheezes, Rales or Rhonchi
Cardiac: Regular Rhythm and S1/S2
GI: Soft, Nontender and Nondistended
Musculoskeletal: No Clubbing, No Cyanosis and No Edema
Skin: Warm and Dry
Neuro: Awake, Alert and Oriented
[2025-02-16] MEDS: CRESTOR 20 MG PO (17:11)
[2025-02-16 17:27] LABS: Glucose - Point of Care 100 mg/dl (70-99)
[2025-02-16 18:21] LABS: APTT 94.2 Sec (23.4-35.0)
[2025-02-16 21:16] LABS: Glucose - Point of Care 106 mg/dl (70-99)
--- NOTE | 2025-02-16 21:35 | PTCARENOTE ---
Assumed care of the pt @ 1900. Pt AAOx3 sitting up in chair. SR on the monitor VSS Heparin gtt infusing @ 1900. Plan of care was explained to pt and he verbalized understanding. Call matthews within reach.
[2025-02-17] VITALS (7 sets, daily range): BP systolic 105–127; BP diastolic 64–81; BMI 38.4
[2025-02-17] MEDS: HEPARIN 25000 UNITS/250 ML IV ×2 (00:08→16:25)
[2025-02-17 00:32] LABS: APTT 143.6 Sec (23.4-35.0)
[2025-02-17 04:16] LABS: Hematocrit 38.1 % (39.0-52.0); Hemoglobin 12.9 g/dL (13.0-18.0); Mean Corp Hgb Conc. 33.9 g/dL (33.0-37.0); Mean Corpuscular Hgb 29.4 pg (27.0-31.0); Mean Corpuscular Volume 86.8 fL (80.0-94.0); Mean Platelet Volume 9.7 fL (7.4-10.4); Platelet Count 251 10^3/uL (130-400); Red Blood Cell Count 4.39 10^6/uL (4.70-6.10); Red Cell Dist. Width 12.9 % (11.5-14.5); White Blood Cell Count 9.2 10^3/uL (4.8-10.8)
[2025-02-17 07:21] LABS: Glucose - Point of Care 113 mg/dl (70-99)
[2025-02-17] MEDS: ASPIR LOW (ENTERIC COATED) 81 MG PO (07:25)
[2025-02-17] MEDS: COREG 3.125 MG PO ×2 (07:25→20:51)
--- NOTE | 2025-02-17 09:21 | W.PN.UPDATE ---
Update Note
Progress Note Update
Brief CTS Note
Patient seen and evaluated alongside Dr. Linda.
Planning for robotic assisted LUA to LAD potentially Wednesday.
Would then plan for PCI of the right coronary after 30 days.
Obtain CTA of the chest today for surgical planning.
Remainder of medical management per primary team. Will follow.
--- NOTE | 2025-02-17 09:57 | PTCARENOTE ---
Assumed care of pt from third shift lieutenant RN. AAOx3. NSR on tele, HRs 60s. Heparin gtt infusing at 1700 units/hr. PTT at 0900 therapeutic at 101.0, next PTT due at 1500. R radial dressing CDI. RUE neurovascular checks WDL. Plan for robotic assisted LUA
to LAD next week. Pt OOB to chair, call matthews in reach.
[2025-02-17 11:52] LABS: Glucose - Point of Care 102 mg/dl (70-99)
--- NOTE | 2025-02-17 13:10 | W.PN.HOSP.TC ---
Today's Communication/Plan
-
await surgical intervention
Assessment / Plan
Assessment / Plan
Non-ST Elevation ID
-Urgent Cardiology Consult
results of testing reviewed with pt and sig other in room
-Plan for cardiac cath this afternoon
-Continue heparin drip
-Trend troponin
0.107-->1.75-->2.87-->3.42-->1.62
- Fasting Lipid Panel
chol 265/trig 212/ldl 189/hdl 34
started on Crestor 20 mg daily
HgbA1c 6.1%
heart cath: 1. Right dominant circulation with a 90% lesion in the distal RCA immediately proximal to the origin of the RPDA and a hazy, ulcerated 90% lesion in the ostium of the left anterior descending that spans the origin and involves the
first diagonal.
2. Mildly elevated filling pressures (LVEDP = 16 mmHg at 113.[address] surg consulted for potential CABG. Plan is for robotic assisted LUA to LAD on Wednesday 02/21 and then PCI of Rt coronary after 30 days
Pt notes that he has urethra strictures. If will need a connor placed during surgery, will defer to CT surgery whether Urology should be consulted to place connor
Diabetes Mellitus, Type II
-Previously on metformin
-Patient reports prior HgbA1c in the 10s range - HgbA1c 6.1%
-Monitor sugars and continue coverage insulin
glu 100-113 currently
Essential Hypertension
-Blood pressure running on the low side
-Hold lisinopril for now
Class II Obesity
-Affects all aspects of care
-Encourage weight loss
-Dietary Consult
DVT proph: Heparin drip
Code Status: Full Code
Anticipated Discharge: > 48 hours
Subjective/Interval History
-
Date of Service: February 17, 2025
No chest pain
Objective Data
-
Labs:
Laboratory Results
02/17/25 02/17/25 02/17/25
00:00 03:50 08:24
WBC 9.2
Hgb 12.9 L
Hct 38.1 L
Plt Count 251
APTT Cancelled Cancelled
02/17/25 02/17/25
09:00 15:00
WBC
Hgb
Hct
Plt Count
APTT 101.0 H Pending
Vital Signs:
Vital Signs
Temp Pulse Resp BP Pulse Ox
98.6 F 64 18 125/81 98
02/17/25 11:22 02/17/25 12:00 02/17/25 11:22 02/17/25 11:22 02/17/25 11:22
I&O
02/16/25 02/17/25 02/18/25
06:59 06:59 06:59
Intake Total 525 / 525 120 / 120 480 / 480
Balance 525 / 525 120 / 120 480 / 480
Review of Systems
-
History Source: Patient and Coordinated Provider
Constitutional: Reports No Symptoms
EENT: Reports No Symptoms Reported
Respiratory: Denies Cough or Hemoptysis
Cardiac: Denies Chest Pain
Abdomen/GI: Denies Abdominal Pain
Genitourinary: Reports No Symptoms
Musculoskeletal: Reports No Symptoms
Endocrine: Reports No Symptoms
Physical Exam
-
General: Well Developed, Well Nourished and No Apparent Distress
HEENT: Normocephalic, Atraumatic and Moist Mucous Membranes
Respiratory: Clear to Auscultation; Negative Wheezes, Rales or Rhonchi
Cardiac: Regular Rhythm and S1/S2
GI: Soft, Nontender and Nondistended
Musculoskeletal: No Clubbing, No Cyanosis and No Edema
Skin: Warm and Dry
Neuro: Awake, Alert and Oriented
[2025-02-17 15:51] LABS: APTT 88.5 Sec (23.4-35.0)
[2025-02-17 16:53] LABS: Glucose - Point of Care 89 mg/dl (70-99)
[2025-02-17] MEDS: CRESTOR 20 MG PO (17:01)
--- NOTE | 2025-02-17 19:45 | PTCARENOTE ---
Assumed care of pt from prev nsg shift; Pt AAOX3 w/no c/o CP or SOB; Pt's VSS w/HR in the 50's-60's & BP 114/64 this evening. Pt is SB/SR on telemetry monitoring. Pt w/IV Heparin drip infusing through patent IV line as ordered. Pt w/R radial access
site w/dressing C/D/I ; Dressing removed by this RN, site is intact w/no signs or symptoms of bleeding or hematoma. Pt OOB to w/call matthews within reach & plan of care ongoing.
[2025-02-17 22:21] LABS: Glucose - Point of Care 85 mg/dl (70-99)
[2025-02-18] VITALS (8 sets, daily range): BP systolic 104–135; BP diastolic 65–84; BMI 37.9
[2025-02-18] MEDS: HEPARIN 25000 UNITS/250 ML IV (06:24)
[2025-02-18 07:38] LABS: Glucose - Point of Care 89 mg/dl (70-99)
[2025-02-18] MEDS: ASPIR LOW (ENTERIC COATED) 81 MG PO (07:40)
[2025-02-18] MEDS: COREG 3.125 MG PO ×2 (07:40→19:58)
--- NOTE | 2025-02-18 09:19 | W.PN.UPDATE ---
Update Note
Progress Note Update
Brief CTS Note
Patient evaluated alongside Dr. Linda
Possibility for robo midcab tomorrow pending surgical schedule/robot availability
Informed consent obtained
NPO after MN, type and screen for 1 unit PRBC
Patient reports hx of urethral strictures. Will plan to use a 12 Fr Coude catheter for connor. If there are any issues will consult urology intraop.
--- NOTE | 2025-02-18 10:00 | PTCARENOTE ---
Assumed care of pt from shift supervisor rn RN. AAOx3. NSR on tele. Heparin gtt infusing per orders. R radial access site KAYLA. Neurovascular checks WDL. Assessment documented. Pt OOB to chair, call matthews in reach. Plan for CVOR tomorrow.
[2025-02-18 11:28] LABS: Glucose - Point of Care 118 mg/dl (70-99)
[2025-02-18 12:17] LABS: APTT 90.6 Sec (23.4-35.0)
--- NOTE | 2025-02-18 12:22 | W.PN.HOSP.TC ---
Today's Communication/Plan
-
potential surgical intervention tomorrow
Assessment / Plan
Assessment / Plan
Non-ST Elevation SD
-Trend troponin
0.107-->1.75-->2.87-->3.42-->1.62
- Fasting Lipid Panel
chol 265/trig 212/ldl 189/hdl 34
started on Crestor 20 mg daily
HgbA1c 6.1%
heart cath: 1. Right dominant circulation with a 90% lesion in the distal RCA immediately proximal to the origin of the RPDA and a hazy, ulcerated 90% lesion in the ostium of the left anterior descending that spans the origin and involves the
first diagonal.
2. Mildly elevated filling pressures (LVEDP = 16 mmHg at 113.[address] surg consulted for potential CABG. Plan is for robotic assisted LUA to LAD potentially Wednesday, 02/19 and then PCI of Rt coronary after 30 days
Pt notes that he has urethra strictures. If will need a cononr placed during surgery, will defer to CT surgery whether able to pass 12 Fr Coude catheter or will need intraop Urology consult
Diabetes Mellitus, Type II
-Previously on metformin
-Patient reports prior HgbA1c in the 10s range - HgbA1c 6.1%
-Monitor sugars and continue coverage insulin
glu 85-118 currently
Essential Hypertension
-Blood pressure running on the low side
-Hold lisinopril for now
Class II Obesity
-Affects all aspects of care
-Encourage weight loss
-Dietary Consult
DVT proph: Heparin drip
Code Status: Full Code
Anticipated Discharge: > 48 hours
Subjective/Interval History
-
Date of Service: February 18, 2025
No chest pain
Objective Data
-
Labs:
Laboratory Results
02/18/25 02/18/25
05:02 11:59
APTT 115.0 H 90.6 H
Vital Signs:
Vital Signs
Temp Pulse Resp BP Pulse Ox
98.3 F 68 18 114/74 96
02/18/25 11:30 02/18/25 11:45 02/18/25 11:30 02/18/25 11:30 02/18/25 11:30
I&O
02/17/25 02/18/25 02/19/25
06:59 06:59 06:59
Intake Total 120 / 120 960 / 960
Output Total 200 / 200
Balance 120 / 120 760 / 760
Review of Systems
-
History Source: Patient, Family (sig other in room) and Coordinated Provider
Constitutional: Reports No Symptoms
EENT: Reports No Symptoms Reported
Respiratory: Denies Cough or Hemoptysis
Cardiac: Denies Chest Pain
Abdomen/GI: Denies Abdominal Pain
Genitourinary: Reports No Symptoms
Musculoskeletal: Reports No Symptoms
Endocrine: Reports No Symptoms
Physical Exam
-
General: Well Developed, Well Nourished and No Apparent Distress
HEENT: Normocephalic, Atraumatic and Moist Mucous Membranes
Respiratory: Clear to Auscultation; Negative Wheezes, Rales or Rhonchi
Cardiac: Regular Rhythm and S1/S2
GI: Soft, Nontender and Nondistended
Musculoskeletal: No Clubbing, No Cyanosis and No Edema
Skin: Warm and Dry
Neuro: Awake, Alert and Oriented
[2025-02-18 17:25] LABS: Glucose - Point of Care 92 mg/dl (70-99)
[2025-02-18] MEDS: CRESTOR 20 MG PO (17:25)
[2025-02-18 18:28] LABS: APTT 77.6 Sec (23.4-35.0)
--- NOTE | 2025-02-18 20:00 | PTCARENOTE ---
report received from IVU RN, pt transferred into room 3384. at bedside. pt AAOx4. pt denies any pain. VSS. Heparin gtt infusing per protocol. NSR on monitor, HR 60s-70s. POX 97% on room air. PIV intact and patent. see worklist for full
assessment, VS, and interventions. pt resting comfortably w call light in reach.
--- NOTE | 2025-02-18 21:45 | PTCARENOTE ---
clip prep completed. pt showered w CHG soap. gown, linens, and electrodes changed.
[2025-02-19] VITALS (11 sets, daily range): BP systolic 111–135; BP diastolic 69–85; BMI 37.7
--- NOTE | 2025-02-19 05:28 | PTCARENOTE ---
no changes in assessment. VSS. SR/SB 50s-70s. POX 95% on room air. Heparin gtt maintained. AM labs drawn and sent. showered w CHG soap. wiped w CHG cloths. pt sleeping between care.
[2025-02-19 05:34] LABS: Hematocrit 38.1 % (39.0-52.0); Hemoglobin 12.7 g/dL (13.0-18.0); Mean Corp Hgb Conc. 33.3 g/dL (33.0-37.0); Mean Corpuscular Hgb 28.9 pg (27.0-31.0); Mean Corpuscular Volume 86.8 fL (80.0-94.0); Mean Platelet Volume 9.5 fL (7.4-10.4); Platelet Count 234 10^3/uL (130-400); Red Blood Cell Count 4.39 10^6/uL (4.70-6.10); Red Cell Dist. Width 12.7 % (11.5-14.5); White Blood Cell Count 8.8 10^3/uL (4.8-10.8)
[2025-02-19 05:48] LABS: APTT 80.2 Sec (23.4-35.0)
[2025-02-19] MEDS: BACTROBAN 2% OINTMENT 1 APPLIC NASAL ×2 (06:31→19:31)
[2025-02-19] MEDS: PROTONIX 40 MG PO (06:31)
[2025-02-19] MEDS: MAGNESIUM OXIDE 500 MG PO (06:32)
--- NOTE | 2025-02-19 08:33 | W.PN.UPDATE ---
Update Note
Progress Note Update
STS RISK SCORE
Procedure Type:�Isolated CABG
Perioperative Outcome Estimate %
Operative Mortality 0.467%
Morbidity & Mortality 3.69%
Stroke 0.488%
Renal Failure 0.427%
Reoperation 1.31%
Prolonged Ventilation 1.92%
Deep Sternal Wound Infection 0.307%
Long Hospital Stay (>14 days) 1.3%
Short Hospital Stay (<6 days)* 75.8%
Clinical Summary
Planned Surgery: Isolated CABG, Urgent, First cardiovascular surgery
Demographics: 45 year old, White, male, 114.1kg, 170cm, BMI: 39.5 kg/m�
Lab Values: Creatinine: 0.7 mg/dL, Hematocrit: 38.7%, WBC Count: 9.9 10�/�L, Platelet Count: 970496 cells/�L
Substance Abuse: Former smoker, Alcohol use: <=1 drink/week
Risk Factors / Comorbidities: Diabetes Mellitus , Hypertension, Family Hx of CAD
Cardiac Status: NYHA Class III, Ejection Fraction = 55%
Coronary Artery Disease: 2 vessels diseased, Proximal LAD Stenosis >=70%, Non-ST Elevation LA, LA: 1 to 7 Days
Valve Disease: Trivial/Trace AR, Trivial/Trace MR, Mild TR
--- NOTE | 2025-02-19 08:34 | W.PN.UPDATE ---
Update Note
Progress Note Update
45-year-old male with history of hypertension and hxq-vqmtizj-dnurfhsai diabetes was admitted via the emergency department on 02/15/25 for evaluation of exertional 'squeezing' chest pain ongoing for the past several weeks. Patient has had
significant family history of coronary disease (father had CABG x 3 before age 50). Patient ruled in for NSTEMI with max troponin 3.420 and was treated with IV heparin. Left heart cath reported two-vessel coronary disease (LAD and RCA). Urology
notified to place bladder catheter due to history of ureteral strictures with prior dilations.
IV fluids: 1500
U.O.:� 300
Blood:� none
Wires:� none
Drips: Insulin
�
NEURO: drowsy, nods yes/no to questions, pupils +2mm B/L
RESP: Lungs clear B/L. Left pleural (0cc on arrival) chest tubes to -20cm suction. Sanguineous drainage
CV: RRR +S1, S2, no S3, no�rub, no murmur. Dermabond to left mini-thoracotomy. RIJ w/Slik
ABD: round, soft, no BS
EXT: no edema, +2/4 DP pulses B/L, no femoral bruit, left radial A-line intact
: Bautista with clear yellow urine
�
A/P: POD #0 s/p MIDCAB x 1 LUA-LAD
BREANN: EF�55-60%
- extubated in the OR
- Tylenol/Toradol IV now for pain
# NSTEMI/2VCAD
- will require ASA, statin, beta-maria victoria
- ok for Plavix if no hematuria
�
# acute surgical blood loss anemia-expected
- trend CBC
�
# T2DM (A1C 6.1)
- insulin infusion x 24h
- diabetes POT FILLER consulted for shelter suggestions as patient stopped MFM on own
�
# Ureteral Strictures
- Bautista placed by urology
- remove in 5-7 days
- f/u with established urologist after discharge to review plan going forward�
[2025-02-19] MEDS: COREG 3.125 MG PO (09:42)
[2025-02-19] MEDS: ASPIR LOW (ENTERIC COATED) PO (09:42)
--- NOTE | 2025-02-19 09:53 | PTCARENOTE ---
assumed care of pt from previous shift RN, sinus rhythm on tele, VSS. Pt is pre op CVOR. Pt was clipped and showered x2 w chlorhexidine soap. Pt confirmed NPO since MN. Confirmed w CT MILA ok to administer morning coreg dose as ordered.
--- NOTE | 2025-02-19 10:46 | PTCARENOTE ---
pt sent to OR
--- NOTE | 2025-02-19 11:02 | CM ---
Reviewed chart. Mr. Almendarez is in the operating room today. Prior to admission he resides with his spouse in a one story home with one step to enter. We need to see his functional level post surgery to see if he will have any skilled care needs.
Medical work-up in progress. The discharge plan is to return home with his spouse and a home visit by the Transitional Care Nurse when medically stable.
--- NOTE | 2025-02-19 11:02 | W.PN.CD ---
Today's Communication / Plan
-
MID-CAB today.
Anticipate routine post operative management.
Wean pressors/intotropes for MAP > 65 mmHg, CI > 1.8 L/min/m2.
Wean vent/sedation to extubation.
Pain/chest tube management per CT surgery.
Discuss timing of DAPT with CT surgery.
Impression / Plan
-
Impression/Plan: 45 y/o male with obesity, HTN, HLD and DM admitted with NSTEMI.
#NSTEMI
-Acute, this diagnosis is threat to life.
-Troponin peaked at 3.42.
-Cath shows 2V CAD with ostial LAD.
-After discussion with CTS, plan for MID-CAB followed by PCI of RCA.
-OR today.
#HTN
-Chronic, stable.
-Continue ACEI.
-Start carvedilol 3.125 mg BID.
#HLD
-Chronic, stable.
-Total cholesterol = 265, LDL = 189, HDL = 34, Triglycerides = 212.
-High dose, high potency statin.
-Goal LDL < 55.
#DM
-Chronic.
-HbA1c pending.
-Took himself off metformin.
-Management per primary team.
#Obesity
-Chronic.
-He would benefit from weight loss moving forward.
Subjective/Interval History:
In OR this morning.
DATA:
Cardiac Catheterization, 02/15/2025:
CONCLUSIONS
1. Right dominant circulation with a 90% lesion in the distal RCA immediately proximal to the origin of the RPDA and a hazy, ulcerated 90% lesion in the ostium of the left anterior descending that spans the origin and involves the first diagonal.
2. Mildly elevated filling pressures (LVEDP = 16 mmHg at 113.9 kg).
Echo, 02/16/2025:
CONCLUSIONS
Normal left ventricular size and systolic function. LVEF 55%.
Basal to mid inferior wall hypokinesis.
Normal right ventricular size and function.
No significant valvular disease.
No prior study available for comparison.
CTA Chest, 02/17/2025:
IMPRESSION:
1. No thoracic aortic aneurysm or dissection.
2. No other significant abnormality identified in the chest, as described above.
Physical Exam
Vital Signs/Labs
Vital Signs
Temp Pulse Resp BP Pulse Ox
36.8 C 64 16 127/80 98
02/19/25 08:18 02/19/25 09:00 02/19/25 08:18 02/19/25 08:18 02/19/25 08:18
02/17/25 02/18/25 02/19/25
11:59 11:59 11:59
Actual Weight 111.1 kg 109.7 kg 109 kg
02/19/25 05:22
02/16/25 04:30
PT 13.4 Sec (11.4-14.6) 02/16/25 04:30
INR 0.99 02/16/25 04:30
APTT 80.2 Sec (23.4-35.0) H 02/19/25 05:22
Triglycerides 212 mg/dl (10-149) H 02/16/25 04:30
LDL Cholesterol, Calc 189 mg/dl 02/16/25 04:30
VLDL Cholesterol, Calc 42 mg/dl (0-30) H 02/16/25 04:30
HDL Cholesterol 34 mg/dl 02/16/25 04:30
LAB Results
02/17/25
08:24
Troponin I 1.620 H*
Physical Exam
Constitutional: No acute distress and Comfortable
EENT: Other (ET tube in place.)
Neuro/Psych: Other (Sedated, currently undergoing surgery.)
Data Reviewed
-
Date of Service: February 19, 2025
Medical Decision Making: Reviewed Test Results, Test Interpretation and Review of Case with other Provider
EKG: Tracing Personally Visualized and interpreted and Report Reviewed by me
Echo: Tracing Personally Visualized and interpreted and Report Reviewed by me
X-Ray/CT/US/MRI/NUC/PET: Image Personally Visualized and interpreted and Report Reviewed by me
Medical Tests (PFT, Pathology etc): Image Personally Visualized and interpreted, Report Reviewed by me, Discussed with Physician, Discussed with Patient and Discussed with Family
Labs: Labs Reviewed by me
--- NOTE | 2025-02-19 11:29 | W.PN.HOSP.TC ---
Today's Communication/Plan
-
OR today
CTS following
Assessment / Plan
Assessment / Plan
Non-ST Elevation PA
-Trend troponin
0.107-->1.75-->2.87-->3.42-->1.62
- Fasting Lipid Panel
chol 265/trig 212/ldl 189/hdl 34
started on Crestor 20 mg daily
HgbA1c 6.1%
heart cath: 1. Right dominant circulation with a 90% lesion in the distal RCA immediately proximal to the origin of the RPDA and a hazy, ulcerated 90% lesion in the ostium of the left anterior descending that spans the origin and involves the
first diagonal.
2. Mildly elevated filling pressures (LVEDP = 16 mmHg at 113.[address] surg consulted for potential CABG. Plan is for robotic assisted LUA to LAD on 02/19 and then PCI of Rt coronary after 30 days
Cont w/ASA/Statin/BB/Hep gtt for now
Pt notes that he has urethra strictures. If will need a connor placed during surgery, will defer to CT surgery whether able to pass 12 Fr Coude catheter or will need intraop Urology consult
Diabetes Mellitus, Type II
-Previously on metformin
-Patient reports prior HgbA1c in the 10s range - HgbA1c 6.1%
-Monitor sugars and continue coverage insulin
Essential Hypertension
-Blood pressure running on the low side
-Hold lisinopril for now
Class II Obesity
-Affects all aspects of care
-Encourage weight loss
-Dietary Consult
DVT proph: Heparin drip
Code Status: Full Code
d/w with family member at bedside
Anticipated Discharge: > 48 hours
Subjective/Interval History
-
Date of Service: February 19, 2025
denies chest pain or sob
awaiting surgery later today
Objective Data
-
Labs:
Laboratory Results
02/19/25
05:22
WBC 8.8
Hgb 12.7 L
Hct 38.1 L
Plt Count 234
APTT 80.2 H
Vital Signs:
Vital Signs
Temp Pulse Resp BP Pulse Ox
98.2 F 64 16 127/80 98
02/19/25 08:18 02/19/25 09:00 02/19/25 08:18 02/19/25 08:18 02/19/25 08:18
I&O
02/18/25 02/19/25 02/20/25
06:59 06:59 06:59
Intake Total 960 / 960
Output Total 200 / 200
Balance 760 / 760
Physical Exam
-
General: Well Developed, Well Nourished and No Apparent Distress
HEENT: Normocephalic, Atraumatic and Moist Mucous Membranes
Respiratory: Clear to Auscultation; Negative Wheezes, Rales or Rhonchi
Cardiac: Regular Rhythm and S1/S2
GI: Soft, Nontender and Nondistended
Musculoskeletal: No Clubbing, No Cyanosis and No Edema
Skin: Warm and Dry
Neuro: Awake, Alert, Oriented and No Motor Deficits
Psych: Calm
--- NOTE | 2025-02-19 11:44 | CON.MD ---
Consultation - Medical
-
intra-op consult
see dictated note
with with sig BXO- meatal and penile stx
performed cysto/dilation
18 [place] cath placed
observe for hematuria
DO NOT REMOVE WORLEY- will need to stay for 5-7 days until pt is able to resume cath
should f/u with his established urologist after discharge to review plan going forward
[2025-02-19 11:47] LABS: Urine Albumin 1+ (Neg - Trace); Urine Bilirubin Negative (Negative); Urine Character Clear (Clear); Urine Color Yellow; Urine Glucose Negative (Negative); Urine Ketone 2+ (Negative); Urine Leukocyte 1+ (Negative); Urine Nitrite Negative (Negative); Urine Occult Blood 4+ (Negative); Urine Urobilinogen Negative (Neg - 1+)
[2025-02-19 12:03] LABS: ACT+ - POC 82 Seconds (82-134)
[2025-02-19 12:58] LABS: Urine Squamous Cell 0-2 /LPF (Few)
[2025-02-19 12:59] LABS: Urine Bacteria Few (Negative); Urine Red Blood Cell 30-40 /HPF (0-2); Urine White Cell 0-2 /HPF (0-5)
[2025-02-19 13:35] LABS: ACT+ - POC 396 Seconds (82-134)
[2025-02-19 14:23] LABS: Glucose - POC 168 mg/dl (70-99); HCO3 - POC 28 mmol/L (21-28); Hematocrit - POC 40 % PCV (42-52); Hemodilution- POC No; Hemoglobin Calculated - POC 13.7; Ionized Calcium - POC 1.14 mmol/L (1.15-1.33); Lactate - POC 0.83 mmol/L (0.36-0.75); O2 Saturation %Calculated-POC 99.5 % (94-98); PCO2 - POC 60 mmHg (35-48); PO2 - POC 192 mmHg (83-108); Potassium - POC 4.7 mmol/L (3.5-5.1); Sodium - POC 140 mmol/L (136-145); Specimen Type - POC Arterial; pH - POC 7.28 (7.35-7.45)
[2025-02-19 14:25] LABS: ACT+ - POC 164 Seconds (82-134)
[2025-02-19 14:34] LABS: B.E. - POC -0.6 mmol/L; Glucose - POC 166 mg/dl (70-99); HCO3 - POC 27 mmol/L (21-28); Hematocrit - POC 38 % PCV (42-52); Hemodilution- POC No; Ionized Calcium - POC 1.12 mmol/L (1.15-1.33); Lactate - POC 1.01 mmol/L (0.36-0.75); O2 Saturation %Calculated-POC 99.2 % (94-98); PCO2 - POC 55 mmHg (35-48); PO2 - POC 163 mmHg (83-108); Potassium - POC 4.6 mmol/L (3.5-5.1); Sodium - POC 142 mmol/L (136-145); Specimen Type - POC Arterial; pH - POC 7.29 (7.35-7.45)
--- NOTE | 2025-02-19 14:56 | W.PN.CT.SURG ---
CT Surgery Operative Note
-
CARDIAC SURGERY OPERATIVE REPORT
Preoperative Diagnosis: Coronary Artery Disease with proximal LAD involvement
Postoperative Diagnosis: Same
Procedure(s) Performed:
1. Robotic assisted MIDCAB (single-vessel bypass LUA in situ to LAD)
2. Robotic assisted harvest of internal mammary artery with anterolateral mini thoracotomy for CABG
3. Transesophageal echocardiography
4. Transonic Flowprobe assessment of LUA graft
Date of Surgery: 02/19/25
Comorbidities:
1. Coronary artery disease involving the proximal LAD
2. Diabetes
3. Morbidly Obese with BMI > 30
4. HTN
5. HLD
6. NSTEMI
7. Urethral stricture - self caths
Attending Surgeon: Cisco Linda MD, MS
Assistants: Tamy Mendoza PA-C (present and necessary to assistant program manager, exchanging robotic instruments, retraction, suction, exposure, suture management, and wound closure under my direction)
Anesthesiology: Jim Aguiar MD and Dione Davison CRNA
Scrub and Circulating RNs: Angie Goodwin RN, Denia Sheppard RN
Traffic Enumerator: Tee Rodriguez CCP
Anesthesia: GETA
EBL: per perfusion records
Products: None
Indication(s) for Procedures: This is a [id number]-u[age]kr-jhe-make who presented with an NSTEMI. He was found to have proximal LAD and mid RPDA disease. Given his young age, and body habitus, multi-disciplinary discussion came to the consensus of offering a
hybrid approach to his CAD. Plan for LUA-LAD with follow up stenting to the RPDA after he recovers from surgery. The STS risk was discussed with the patient in the office and the shared decision making was to pursue a single-vessel bypass using his
mammary artery to his LAD via a mini invasive approach.
Conduit(s) Quality/Internal Diameter:
LUA - Excellent, semi pedicle with vein attached, flow probe analysis, mean flow of 62 cc/min, PI of 1.0
Target(s) Quality/Internal Diameter:
LAD - Excellent, accommodated a 2.0mm shunt easily
Findings: His left ventricular ejection fraction was normal pre and normal post. He had no new regional wall motion abnormalities after grafting. The LUA was harvested in a semi skeletonized fashion with the main vein still attached. The mammary
graft was verified with Doppler probe to have excellent signals. Flow probe assessment yielded a mean flow of >60cc/min and a PI of <2.0. He was extubated intraop without complications. He did not require blood products. He did not require inotropic
support. Urology placed his catheter as he has a known urethral stricture.
Description of Procedure: The patient was taken to the operating room. Their identity and procedure to be performed were verified and they were positioned supine on the operating table. Induction via general anesthesia with endotracheal intubation
was performed and central venous access and arterial monitoring were inserted. A preoperative transesophageal echocardiogram was performed to assess cardiac function and valvular function. The patient was then prepped and draped from chin to feet in
a sterile fashion and positioned with left side bumped up and left arm down. A preoperative time-out was performed with all members of the team present. A Veress needle was used to enter the chest after stopping ventilation with the left lung
verified by anesthesia. We started with slow pressure insufflation which they tolerated. An 8 mm port was inserted in the fourth intercostal space laterally and a camera was inserted verifying no intrathoracic iatrogenic injuries. 2 additional
ports (8 mm and 8mm) were placed along the midaxillary line on either side of the camera port. Single 12 mm air seal port was used for the assistant professor of sociology to pass instruments and sutures. The robotic platform was then docked and targeted towards the
mammary. The mammary was harvested in a skeletonized fashion. A posterior pericardiotomy was created to facilitate drainage. Once sufficient length was obtained, an anterior pericardiotomy was created to identify the distal target. This was marked
with a marker robotically. Full heparinization was given (a total of 30,000 units). 3 Hem-o-erika clips were used to occlude and divide the mammary distally at its bifurcation, and a single silk suture was used to secure the mammary to the
pericardium overlying the LAD target with another clip. The robot platform was then undocked and the patient and a left anterior thoracotomy was created over the target vessel. Upon entering the thoracic cavity the mammary and LAD were visible. A
thoracotomy retractor was placed to facilitate exposure and a pericardial well was created. An off-pump cardiac stabilizer was used to facilitate exposure. The ACT was confirmed to be over 350.
The cardiac suction stabilizer was used to isolate the LAD target. The distal end of the mammary was clipped with a medium clip, and the underbelly of the LUA was incised yielding excellent flow. We verified orientation and length of the KEEGAN and
found brisk flow. A coronary arteriotomy was created and enlarged with coronary arellano scissors. A 2mm shunt was inserted to facilitate exposure and continued [place] coronary perfusion. An plie-ab-cecs anastomosis was created with a 7-0 prolene
and secured with a micro CorKnot. The bulldog on the mammary was removed which demonstrated excellent graft flow. The shunt was then remove and demonstrated excellent [place] flow. Appropriate hemostasis was confirmed. The mammary graft was
inspected and was free from kinking or twisting and flowprobe evaluation demonstrated good flow and PI. A test dose of protamine was administered and the patient was monitored for any adverse reaction before resuming protamine. A 19F brandy drain
into the pericardium and through the posterior pericardiotomy into the left chest. Fascia was approximated with #1 vicryl suture. Local analgesia was administered to the surgical sites. The subcutaneous, dermis and epidermis were closed in layers in
a running fashion. The skin wound was cleansed and dressed.
All instrument, sponge, and needle counts were confirmed to be correct x 2 at the end of the operation. The patient was transferred to the cardiac intensive care unit extubated in critical but stable condition.
I, Dr. Cisco Linda, was present, scrubbed for, and performed all critical elements of this procedure.
Cisco Linda MD, MS
Cardiothoracic Surgeon
[facility]
This operative dictation was created using the [employer] dictation system. Please excuse any grammatical, typographical, or 'sound alike' errors
[2025-02-19 15:07] LABS: Glucose - Point of Care 170 mg/dl (70-99)
--- NOTE | 2025-02-19 15:07 | CON.INTV ---
Consultation
Consultation Request
Date/Time Consultation Requested: 02/19/25
Date/Time Consultation Performed: 02/19/25
Performing Provider: Hector
Reason for Consultation: CVICU
Medical History
-
History of Present Illness:
Patient is a 45-year-old male with previous history of diabetes, hypertension, and obesity presenting to ER with chest pain, diaphoresis, dizziness. Admitted to 02/15/2025 ruled in for AZ, underwent urgent cardiac catheterization demonstrating
90% distal RCA lesion, ulcerated 90% lesion in the LAD. CT surgery evaluation obtained as well, with planning for cardiac procedure on Wednesday02/19/25. Underwent CABG and is perioperatively intubated and admitted to CVICU for further management.
Allergies / Home Medications
Allergies
Allergy/AdvReac Type Severity Reaction Status Date / Time
No Known Allergies Allergy Verified 02/15/25 08:57
Home Medications
�Medication �Instructions �Recorded �Confirmed �Last Taken �Type
aspirin 81 mg tablet,delayed 81 mg PO DAILY Blood Clot 02/15/25 02/15/25 02/15/25 History
release Prevention/Tx
lisinopril 10 mg tablet 10 mg PO DAILY Blood Pressure 02/15/25 02/15/25 02/15/25 History
Review of Systems
Vitals / Labs / Diagnostic Testing
Vital Signs
Temp Pulse Resp BP Pulse Ox
98.2 F 64 16 127/80 98
02/19/25 08:18 02/19/25 09:00 02/19/25 08:18 02/19/25 08:18 02/19/25 08:18
Laboratory Results
02/18/25 02/19/25
18:00 05:22
APTT 77.6 H 80.2 H
Diagnostic Testing:
Assessment
-
Patient is a 45-year-old male with previous history of diabetes, hypertension, and obesity presenting to ER with chest pain, diaphoresis, dizziness. Admitted to 02/15/2025 ruled in for AZ, underwent urgent cardiac catheterization demonstrating
90% distal RCA lesion, ulcerated 90% lesion in the LAD. CT surgery evaluation obtained as well, with planning for cardiac procedure on Wednesday02/19/25. Underwent CABG and is perioperatively intubated and admitted to CVICU for further management.
Multivessel CAD status post robotic CABG 02/19/2025
Perioperative mechanical ventilation
Acute AZ status postcardiac cath 02/15/25
Chest pain, diaphoresis
Conditions present prior to admission
Hypertension
Hyperlipidemia
Obesity, BMI 37
Former smoker, 3 PPD for 9 years, quit at age 20
Plan
S/p CAB POD #0
Titrate off pressors per protocol
ECHO reviewed with normal function
PA catheter readings reviewed
Management of chest tubes per primary service
Extubated in PACU, on NC
Pain control
RASS goal of 0 to -1
ABG(s) reviewed/adequate
CXR with no obvious opacities/infiltrates, low lung volumes, ETT in good position, lines/tubes in place
Extubated per protocol
Maintain supplement oxygen as needed
No prior history of pulmonary disease, former smoker
No prior PFTs for review, at risk for lung disease, OP FU recommended
At risk for MINDI as well--will leave info in chart
Can add nebulizers if needed
Aspiration precautions
Encouraged incentive spirometry, OOB/ambulation/early mobility
Advance diet as tolerated following extubation
GI prophylaxis if indicated for mechanical ventilation >48 hours
Monitor critical I/O's
Bautista/chest tube output
Hb/platelets postoperatively stable
Trend CBC for now
Can transfuse if indicated for Hb <7, plt <50 in surgical patients
DVT prophylaxis including SCDs
Insulin protocol initiated and ongoing
Possible NIDDM, Hba1c >6
Transition to SQ/off as indicated per team
We will follow
Diagnostic Data
Chest X-Ray: 02/15/25- No evidence of active cardiopulmonary disease.
CT Scan: CHEST 02/16/25- Central airways are patent. No focal airspace disease. No nodules. Couple tiny calcified granulomas within the right lung. No pleural effusions or pneumothorax.
Echo: 02/16/25- Normal left ventricular size and systolic function. LVEF 55%. Basal to mid inferior wall hypokinesis. Normal right ventricular size and function. No significant valvular disease. No prior study available for comparison.
[facility] 02/15/25- 1. Right dominant circulation with a 90% lesion in the distal RCA immediately proximal to the origin of the RPDA and a hazy, ulcerated 90% lesion in the ostium of the left anterior descending that spans the origin and involves the first
diagonal.
2. Mildly elevated filling pressures (LVEDP = 16 mmHg at 113.9 kg).
PFT's:
Reports and relevant images were personally reviewed.
Critical Care time 50 mins -- The patient is admitted for acute critical illness for the treatment of vital organ failure and/or prevention of further life-threatening conditions. Total care includes time spent in review of history, physical exam,
medications, hemodynamic/ventilator parameters, laboratory data, imaging and discussion with house staff, pharmacy, respiratory therapy, motor setter, and nursing.
[2025-02-19] MEDS: OFIRMEV 100 IV (15:12)
[2025-02-19] MEDS: TORADOL 15 MG IV (15:13)
[2025-02-19 15:15] LABS: B.E. 0.6 mmol/L; HCO3 27.4 mmol/L (21-28); Hemoglobin 13.1 g/dL (13.0-18.0); Ionized Calcium 1.19 mMOL/L (1.15-1.33); O2 Saturation % 99.2 % (94-98); PCO2 52 mmHg (35-48); PO2 117 mmHg (83-108); Platelet Count 230 10^3/uL (130-400); Potassium 4.7 mMOL/L (3.5-5.1); Sodium 133 mMOL/L (136-145); pH 7.33 (7.35-7.45)
[2025-02-19] MEDS: TYLENOL PO (15:15)
[2025-02-19] MEDS: NOVOLOG FLEXPEN SC ×2 (15:15→16:19)
[2025-02-19] MEDS: ANCEF 10 IV ×2 (15:15)
[2025-02-19] MEDS: NSS 500 IV (15:15)
[2025-02-19 15:24] LABS: INR 1.22; PT 15.7 Sec (11.4-14.6)
[2025-02-19 15:25] LABS: APTT 31.7 Sec (23.4-35.0)
--- NOTE | 2025-02-19 15:25 | PTCARENOTE ---
Received pt from CVOR at 1500; PT AAOX3 and drowsy; NSR on monitor and VSS; RIJ Cordis/SLIC, Left A-line and PIV x1 all patent; Insulin infusing see flow sheet for details; Lungs diminished; cT x1 to -20 wall suction, no air leak and no crepitus
noted; hypoactive bowel sounds; Bautista catheter draining yellow urine, per Urology keep Bautista for 5-7 days; palpable pulses throughout; no edema noted; all surgical sites C/D/I; see nursing documentation for further details.
[2025-02-19 15:37] LABS: Blood Urea Nitrogen 17 mg/dl (9-20); Estimated Creatinine Clearance 119 ml/min; Glucose 167 mg/dl (70-99); Magnesium 2.6 mg/dl (1.6-2.3)
--- NOTE | 2025-02-19 15:51 | PN.DE.MGMTRT ---
Insulin Management
- -
02/19/2025: Diabetes Management Consult
45 year old male with PMH: HTN, HLD, CAD,Obesity, Former smoker, 3 PPD for 9 years, quit at age 20 and diet controlled T2DM, who was admitted on 02/15 with substernal chest pain, diaphoresis and dizziness. Pt ruled in for [place], underwent urgent cardiac
catheterization demonstrating 90% distal RCA lesion, ulcerated 90% lesion in the LAD. He underwent CABG today. He was initiated on Glycemia protocol postoperatively x48 hrs. A1C is 6.1%, Cr 1.0, eGFR >60
Plan to continue insulin infusion x48 hrs and transition off drip on 02/21.
Will cont to follow and assist with transition off when medically stable.
Diabetes History
- -
Type of Diabetes: 2
Pre-Admission Diabetes Regimen
02/19/25
15:07
Creatinine 0.9
Lab Results
Hemoglobin A1c 6.1 % (4.0-5.6) H 02/16/25 04:30
Insulin Pump Settings
IP Diabetes Regimen
02/18/25 02/19/25 02/19/25
17:24 15:05 15:07
Glucose 167 H
POC Glucose 92 170 H
Patient Education
[2025-02-19 16:01] LABS: Glucose - Point of Care 149 mg/dl (70-99)
[2025-02-19] MEDS: PACERONE PO (16:19)
[2025-02-19] MEDS: NEURONTIN PO (16:19)
[2025-02-19 16:57] LABS: Glucose - Point of Care 133 mg/dl (70-99)
[2025-02-19 18:04] LABS: Glucose - Point of Care 110 mg/dl (70-99)
[2025-02-19] MEDS: CRESTOR PO (18:04)
[2025-02-19] MEDS: LOW STRENGTH ASPIRIN 81 MG PO (18:58)
[2025-02-19 19:06] LABS: Glucose - Point of Care 156 mg/dl (70-99)
--- NOTE | 2025-02-19 19:07 | PTCARENOTE ---
Labs drawn; NSR on monitor and VSS; assessment unchanged and family at bedside; report given to [employer] shift lead RN.
[2025-02-19 19:16] LABS: Hematocrit 39.6 % (39.0-52.0); Hemoglobin 13.5 g/dL (13.0-18.0); Platelet Count 241 10^3/uL (130-400)
[2025-02-19] MEDS: ANCEF 5 IV (19:31)
[2025-02-19] MEDS: SENOKOT-S 1 TABLET PO (19:31)
--- NOTE | 2025-02-19 20:00 | PTCARENOTE ---
Received pt from [facility]. pt is s/p MidCABGx1 with Dr Linda. pt resting comfortably in bed, AAOx4. heart sounds distant, radial and DP pulses palpable, no edema noted. lung sounds diminished throughout, spo2 93% on 4 LNC, x1 left MS CT to -20 wall
suction, no air leaks, no tidaling, no crepitus. hypoactive BSx4 quadrants, abdomen soft non tender, round/obese. pt voiding clear yellow urine via connor catheter. surgical sites maintained. right IJ cordis/slick, left radial Huger, and PIV all
maintained, leveled, and zeroed. pt cleaned with CHG wipes, connor care provided, new leads and gown placed. call matthews within reach. will continue to monitor.
[2025-02-19] MEDS: TYLENOL 1000 MG PO (21:06)
[2025-02-19] MEDS: NEURONTIN 100 MG PO (21:06)
[2025-02-19] MEDS: PACERONE 200 MG PO (21:07)
[2025-02-19 21:14] LABS: Glucose - Point of Care 140 mg/dl (70-99)
--- NOTE | 2025-02-19 22:00 | PTCARENOTE ---
Pt's Debbi is significantly higher than cuff pressure. both are recorded. CVPA made aware, request that cuff BP is followed
[2025-02-19 22:59] LABS: Glucose - Point of Care 107 mg/dl (70-99)
[2025-02-20] VITALS (34 sets, daily range): BP systolic 83–145; BP diastolic 49–82; PULSE 75; O2SAT 93–95; BMI 38.1
--- NOTE | 2025-02-20 | PTCARENOTE ---
Pt assessment unchanged. VSS. NSR on monitor. call matthews within reach. will continue to monitor.
--- NOTE | 2025-02-20 00:30 | W.PN.CT ---
Today's Communication / Plan
-
Plan:
-No major issues overnight. Hemodynamically and neurologically intact
-Pt was successfully extubated
-Currently in NSR @ 75 bpm
-Off all drips but insulin per protocol
-No swan, MVO2 72.5%, U/O since OR 2430 mL
-Monitor chest tube output for possible D/C: L pleural 90/90. CXR looks clear to my eyes without significant atelectasis/pleural effusion, no ptx. F/u official report
-Cont. current meds (ASA, Plavix, Crestor, Amiodarone, BB if BP permits)
-Mag oxide placed on hold, mg 2.5 today
-D/C'd a-line and SLIC @ 0430
-Keep connor per Urology given difficult connor placement/hx of urethral stricture/urinary retention
-Telemetry phase tomorrow when off insulin gtt per protocol
-Maintain cordis
-Encourage use of IS
-Wean o2 as tolerated
-OOB into chair/Ambulate
-Eventual PCI with stent to RCA
Assessment / Plan
-
Assessment:
-S/P Robotic assisted MIDCAB (single-vessel bypass LUA in situ to LAD) by Dr. Linda, 02/19/25, pod#1
-Coronary artery disease involving the proximal LAD and RCA
-NSTEMI
-LVEF 60-65% per intraop BREANN
-T2DM (hgb A1C 6.1)
-Class 2 obesity (BMI 37.6)
-HTN
-HLD
-Preop Anemia
-Urethral stricture - self caths/self dilates
-Urinary retention
-Chronic inflammation of glans penis/meatus/urethral stricture S/P intraop cystoscopy, urethral dilation and Connor catheter placement , 02/19/25
-Acute postop atelectasis
-Acute postop hypovolemia with subsequent hypervolemia
-Acute postop hypermagnesemia
Discussed patient care with: Cardiology, Nursing, Respiratory Therapy, Pharmacy and Care Team
Subjective
Procedure
S/P Robotic assisted MIDCAB (single-vessel bypass LUA in situ to LAD) by Dr. Linda, 02/19/25
-
Date of Service: February 20, 2025
Pt c/o mild incisional pain, otherwise feels well
Objective Data
-
PT 15.7 Sec (11.4-14.6) H 02/19/25 15:07
INR 1.22 02/19/25 15:07
APTT 31.7 Sec (23.4-35.0) 02/19/25 15:07
Vital Signs
Vital Signs
Temp Pulse Resp BP Pulse Ox
98.1 F 75 16 120/75 98
02/20/25 00:00 02/19/25 22:00 02/20/25 00:00 02/19/25 22:00 02/20/25 00:00
CT Intake/Output/Weight
02/19/25 02/19/25 02/20/25
06:59 18:59 06:59
Intake Total 91.1 / 224.9 133.8 / 224.9
Output Total 290 / 1825 1535 / 1825
Balance -198.9 / -1600.1 -1401.2 / -1600.1
SaO2: 98 (2L)
Physical Exam
-
General: Awake, Oriented and AOx3
Cardiovascular: Regular rate & rhythm, No Murmurs and No Rub
Respiratory: Decreased Breath Sounds (at bases, otherwise clear)
Sternum: Stable
Incision: Clean, Dry, Intact and Dressing Intact
Extremities: No Edema
Data Reviewed
-
Lab Results: Results Reviewed
Medications: Active Meds Reviewed
Chest X-Ray: Report Reviewed and Image Reviewed
ECG: Report Reviewed and Image Reviewed
[2025-02-20 00:58] LABS: Glucose - Point of Care 110 mg/dl (70-99)
[2025-02-20] MEDS: ROXICODONE 5 MG PO ×3 (03:04→22:08)
[2025-02-20] MEDS: ANCEF 5 IV ×2 (03:05→12:08)
[2025-02-20 03:10] LABS: Glucose - Point of Care 99 mg/dl (70-99)
[2025-02-20 03:26] LABS: Hematocrit 38.8 % (39.0-52.0); Hemoglobin 13.2 g/dL (13.0-18.0); Mean Corpuscular Hgb 29.2 pg (27.0-31.0); Mean Corpuscular Volume 85.8 fL (80.0-94.0); Mean Platelet Volume 9.8 fL (7.4-10.4); Platelet Count 254 10^3/uL (130-400); Red Blood Cell Count 4.52 10^6/uL (4.70-6.10); Red Cell Dist. Width 12.8 % (11.5-14.5); White Blood Cell Count 15.4 10^3/uL (4.8-10.8)
[2025-02-20 03:28] LABS: Mixed Venous O2 Saturation 72.5 %
[2025-02-20] MEDS: DILAUDID IV (03:44)
[2025-02-20 03:48] LABS: Blood Urea Nitrogen 13 mg/dl (9-20); Carbon Dioxide 28 mmol/L (22-30); Chloride 106 mmol/L (98-107); Estimated Creatinine Clearance > 125 ml/min; Glucose 107 mg/dl (70-99); Magnesium 2.5 mg/dl (1.6-2.3); Potassium 4.4 mmol/L (3.5-5.1); Sodium 139 mmol/L (135-145); eGFR > 60.00
[2025-02-20] MEDS: DILAUDID 0.25 MG IV (03:49)
--- NOTE | 2025-02-20 04:00 | PTCARENOTE ---
pt assessment unchanged. labs drawn, EKG obtained.
[2025-02-20] MEDS: FLEXERIL 5 MG PO ×2 (04:34→12:49)
--- NOTE | 2025-02-20 04:47 | PTCARENOTE ---
pt's pain has increased at this time 8-07/25, see MAR for details. pt delined per CVPA.
[2025-02-20 05:14] LABS: Glucose - Point of Care 121 mg/dl (70-99)
[2025-02-20] MEDS: TYLENOL 1000 MG PO ×3 (05:41→22:06)
[2025-02-20 07:05] LABS: Glucose - Point of Care 127 mg/dl (70-99)
--- NOTE | 2025-02-20 07:19 | W.PN.ANS.POP ---
Anesthesia Post Operative
- Anesthesia Post Op Note
Vital Signs Stable-See Nursing Note: Yes
Airway Patent: Yes
Adequate Pain Control: Yes
Change in Mental Status: No
Current Postoperative Nausea & Vomiting: No
Anesthesia Complications: No
General Anesthetic Recall: No
Unplanned Admission: No
Post Op Hydration Adequate: Yes
--- NOTE | 2025-02-20 07:27 | W.PN.UPDATE ---
Update Note
Progress Note Update
pt stable
urine clear
connor in place
rec removing connor on POD#5 and outpt f/u with established urologist
--- NOTE | 2025-02-20 08:00 | PTCARENOTE ---
pt received from previous RN, oriented, OOB in chair. SR on the monitor, HR 60-70s. SBP 80-90s. pt denies lightheadedness or dizziness. palpable pulses, trace generalized edema. pt on RA, 92-95% POX. lungs diminished. IS encouraged. CTx1, no air
leak or crepitus noted. pt abdomen round, s/n, denies n/v. diet tolerated. connor in place, clear yellow urine. surgical sites intact, chest tube site c/d/i. RIJ cordis. PIV. insulin gtt running as ordered. see worklist for VS, I&, and assessment.
[2025-02-20] MEDS: SENOKOT-S 1 TABLET PO ×2 (08:07→19:40)
[2025-02-20] MEDS: PROTONIX 40 MG PO (08:07)
[2025-02-20] MEDS: NEURONTIN 100 MG PO ×3 (08:07→22:06)
[2025-02-20] MEDS: PACERONE 200 MG PO ×3 (08:07→22:06)
[2025-02-20] MEDS: PLAVIX 75 MG PO (08:08)
[2025-02-20] MEDS: LOW STRENGTH ASPIRIN 81 MG PO (08:08)
[2025-02-20] MEDS: BACTROBAN 2% OINTMENT 1 APPLIC NASAL ×2 (08:08→19:39)
[2025-02-20] MEDS: NOVOLOG FLEXPEN 4 UNITS SC ×3 (08:09→16:02)
--- NOTE | 2025-02-20 08:45 | PN.DE.MGMTRT ---
Insulin Management
- -
02/20/2025: Diabetes Management follow up
45 year old male with PMH: HTN, HLD, CAD,Obesity, Former smoker, 3 PPD for 9 years, quit at age 20 and Diet controlled T2DM, who was admitted on 02/15 with substernal chest pain, diaphoresis and dizziness. Pt ruled in for WI, underwent urgent cardiac
catheterization demonstrating 90% distal RCA lesion, ulcerated 90% lesion in the LAD. A1C is 6.1%, (was 6.7% in 10/2024 and 10.2% in 07/2024) Cr 1.0, eGFR >60.
Pt awake, alert, oriented, sitting up in chair, offers no complaints, able to discuss diabetes care plan
POD # 1 s/p CABG x3. Remains on Glycemia protocol postoperatively x48 hrs. Glucose range 99 to 127, requiring 0.8 to 2.6 units of insulin/hr.
Pt reports that he was initially dx with DM in 07/2024, A1C was 10.2% at the time and he was started on Metformin 500mg BID. States he reduced his Metformin dose to once a day and eventually stopped taking it without doctor's orders in October 2024.
He states that Metformin is a bad drug and insists that he will NEVER take it again because there are multiple law suits about Metformin. He states he has glucose monitor at home and tests his blood sugars 1-2 times a day.
Attempted to discuss benefits of starting a GLP1 or SGLT2 and pt strongly declined any discussion about medications, stating that he is managing his care using homeopathic alternatives and that he managed to reduce his A1C by diet and taking
chromium.
Informed pt that chromium supplementation is not a substitute for medical treatment of diabetes and that he may develop kidney damage with extermination inspector use of chromium. Prior to end of our discussion, I offered to provide pt with information on GLP1s
and SGLT2 medications and pt declined stating 'Where do you get your research?...Pharma?'
Will cont to follow
Diabetes History
- -
Type of Diabetes: 2
Pre-Admission Diabetes Regimen
02/19/25 02/20/25
15:07 02:53
Creatinine 0.9 0.8
Lab Results
Hemoglobin A1c 6.1 % (4.0-5.6) H 02/16/25 04:30
Insulin Pump Settings
IP Diabetes Regimen
02/19/25 02/19/25 02/19/25
15:05 15:07 16:00
Glucose 167 H
POC Glucose 170 H 149 H
02/19/25 02/19/25 02/19/25
16:55 18:03 19:04
Glucose
POC Glucose 133 H 110 H 156 H
02/19/25 02/19/25 02/20/25
21:12 22:58 00:57
Glucose
POC Glucose 140 H 107 H 110 H
02/20/25 02/20/25 02/20/25
02:53 03:09 05:13
Glucose 107 H
POC Glucose 99 121 H
02/20/25
07:04
Glucose
POC Glucose 127 H
Meal type: Dinner
Amount consumed: 100%
Patient Education
--- NOTE | 2025-02-20 08:56 | W.PN.CD ---
Today's Communication / Plan
-
Agree with care
Continue statin
Impression / Plan
-
Background: 45 y/o male with obesity, HTN, HLD and DM admitted with NSTEMI.
CAD with ACS with NSTEMI
- S/p MID-CAB LUA to LAD (minimally invasive direct coronary artery bypass on 02/19/2025
- Peak trop 3.42, LVEF 55-60%
- Plan for return for elective PCI of RCA.
HTN, goal BP < 130/80
- BP a bit low
Mixed hyperlipemia, LDL 189
- Goal LDL < 55
DM
- Good candidate for GLP1 agonist or GLP1/GIP agonist
BMI 38
preop Anemia
Urethral stricture, self caths/self dilates
Subjective: Doing well, no angina, some incisional pain
DATA:
Cardiac Catheterization, 02/15/2025:
Right dominant circulation with a 90% lesion in the distal RCA immediately proximal to the origin of the RPDA and a hazy, ulcerated 90% lesion in the ostium of the left anterior descending that spans the origin and involves the first diagonal.
Mildly elevated filling pressures (LVEDP = 16 mmHg at 113.9 kg).
Echo, 02/16/2025:
Normal left ventricular size and systolic function. LVEF 55%.
Basal to mid inferior wall hypokinesis.
Normal right ventricular size and function.
No significant valvular disease.
No prior study available for comparison.
CTA Chest, 02/17/2025:
No thoracic aortic aneurysm or dissection.
No other significant abnormality identified in the chest, as described above.
Physical Exam
Vital Signs/Labs
Vital Signs
Temp Pulse Resp BP Pulse Ox
98.1 F 78 18 95/59 95
02/20/25 03:56 02/20/25 08:00 02/20/25 08:00 02/20/25 08:00 02/20/25 08:00
02/19/25 02/20/25 02/21/25
06:59 06:59 06:59
Actual Weight 109 kg 110.2 kg
02/20/25 02:53
02/20/25 02:53
PT 15.7 Sec (11.4-14.6) H 02/19/25 15:07
INR 1.22 02/19/25 15:07
APTT 31.7 Sec (23.4-35.0) 02/19/25 15:07
Magnesium 2.5 mg/dl (1.6-2.3) H 02/20/25 02:53
Triglycerides 212 mg/dl (10-149) H 02/16/25 04:30
LDL Cholesterol, Calc 189 mg/dl 02/16/25 04:30
VLDL Cholesterol, Calc 42 mg/dl (0-30) H 02/16/25 04:30
HDL Cholesterol 34 mg/dl 02/16/25 04:30
LAB Results
02/17/25
08:24
Troponin I 1.620 H*
Physical Exam
Constitutional: No acute distress
EENT: Anicteric
Cardiovascular: Rhythm & rate is regular and Pedal edema is absent
Respiratory: Respiratory effort normal and Lungs clear to auscul.
GI: Soft
Neuro/Psych: Alert
Data Reviewed
-
Date of Service: February 20, 2025
[2025-02-20 09:07] LABS: Glucose - Point of Care 213 mg/dl (70-99)
[2025-02-20] MEDS: LIDOCAINE 4% PATCH 1 PATCH TOPICAL (09:17)
--- NOTE | 2025-02-20 10:00 | PTCARENOTE ---
pt placed back to bed, L lateral CT dc'd as ordered, dressing c/d/i. connor care performed.
[2025-02-20 10:09] LABS: Glucose - Point of Care 192 mg/dl (70-99)
[2025-02-20 11:10] LABS: Glucose - Point of Care 188 mg/dl (70-99)
[2025-02-20 12:01] LABS: Glucose - Point of Care 169 mg/dl (70-99)
[2025-02-20] MEDS: NOVOLIN R INSULIN INFUSION 100 IV (12:08)
--- NOTE | 2025-02-20 12:15 | PTCARENOTE ---
pt VSS, no changes in assessment. pt ambulated in entire loop in hallway w/ stand by assist. oral hygiene performed. pt OOB in chair for lunch.
--- NOTE | 2025-02-20 12:32 | CM ---
Reviewed chart. Met with Mr. Almendarez to review discharge plans. He states he is feeling okay just tired. He states prior to admission he resides with his spouse and two daughters in a one story home with one step to enter. He states he has a full
flight of steps to get to basement where the laundry room and his office are located. He states prior to admission he was independent in ambulation and adls. He states he has a glucometer at home. He states he has a prescription plan. He states
his spouse and daughters will be at work or school during the day. He states he has a neighbor he can call if he needs anything. We reviewed a home visit by the Transitional Care Nurse when medically stable.
[2025-02-20 12:53] LABS: Glucose - Point of Care 138 mg/dl (70-99)
--- NOTE | 2025-02-20 13:10 | W.PN.INTV ---
Today's Communication / Plan
Recommendations
Doing well today, off pressors
Pain control
Remains on insulin gtt, transition to SQ per team
Encouraged OOB/PT/ambulation
Can transfer to tele once off insulin protocol
Assessment
-
Patient is a 45-year-old male with previous history of diabetes, hypertension, and obesity presenting to ER with chest pain, diaphoresis, dizziness. Admitted to 02/15/2025 ruled in for IA, underwent urgent cardiac catheterization demonstrating
90% distal RCA lesion, ulcerated 90% lesion in the LAD. CT surgery evaluation obtained as well, with planning for cardiac procedure on Wednesday02/19/25. Underwent CABG and is perioperatively intubated and admitted to CVICU for further management.
Multivessel CAD status post robotic CABG 02/19/2025
Perioperative mechanical ventilation
Acute IA status postcardiac cath 02/15/25
Chest pain, diaphoresis
Conditions present prior to admission
Hypertension
Hyperlipidemia
Obesity, BMI 37
Former smoker, 3 PPD for 9 years, quit at age 20
Plan
S/p CAB POD #1
Off pressors
ECHO reviewed with normal function
PA catheter discontinued
Management of chest tubes per primary service
Extubated in PACU, on NC, stable
Pain control
RASS goal of 0 to -1
ABG(s) reviewed/adequate
CXR with stable postop changes
Maintain supplement oxygen as needed
No prior history of pulmonary disease, former smoker
No prior PFTs for review, at risk for lung disease, OP FU recommended
At risk for MINDI as well--will leave info in chart
Can add nebulizers if needed
Aspiration precautions
Encouraged incentive spirometry, OOB/ambulation/early mobility
Advance diet as tolerated following extubation
GI prophylaxis if indicated for mechanical ventilation >48 hours
Monitor critical I/O's
Bautista/chest tube output
Hb/platelets postoperatively stable
Trend CBC for now
Can transfuse if indicated for Hb <7, plt <50 in surgical patients
DVT prophylaxis including SCDs
Insulin protocol initiated and ongoing
Possible NIDDM, Hba1c >6
Transition to SQ/off as indicated per team
Diagnostic Data
Chest X-Ray: 02/15/25- No evidence of active cardiopulmonary disease.
CT Scan: CHEST 02/16/25- Central airways are patent. No focal airspace disease. No nodules. Couple tiny calcified granulomas within the right lung. No pleural effusions or pneumothorax.
Echo: 02/16/25- Normal left ventricular size and systolic function. LVEF 55%. Basal to mid inferior wall hypokinesis. Normal right ventricular size and function. No significant valvular disease. No prior study available for comparison.
[facility] 02/15/25- 1. Right dominant circulation with a 90% lesion in the distal RCA immediately proximal to the origin of the RPDA and a hazy, ulcerated 90% lesion in the ostium of the left anterior descending that spans the origin and involves the first
diagonal.
2. Mildly elevated filling pressures (LVEDP = 16 mmHg at 113.9 kg).
PFT's:
Reports and relevant images were personally reviewed.
Critical Care time 35 mins -- The patient is admitted for acute critical illness for the treatment of vital organ failure and/or prevention of further life-threatening conditions. Total care includes time spent in review of history, physical exam,
medications, hemodynamic/ventilator parameters, laboratory data, imaging and discussion with house staff, pharmacy, respiratory therapy, field artillery basic, and nursing.
Subjective Dataa
Subjective Data
Date of Service:
Date of Service: February 20, 2025
Chief Complaint: Heddler Follow Up
Subjective:
Doing well today, less pain/SOB
Tired, wants to sleep
Remains on insulin gtt
Objective Data
Data Reviewed
Vital Signs / I&O / Oxygen:
Vital Signs
Temp Pulse Resp BP Pulse Ox
98.6 F 71 18 126/67 96
02/20/25 11:36 02/20/25 12:46 02/20/25 11:36 02/20/25 12:46 02/20/25 11:36
Intake and Output
02/19/25 02/20/25 02/21/25
06:59 06:59 06:59
Intake Total 327.7 / 340.3 583.2 / 583.2
Output Total 2595 / 2610 535 / 535
Balance -2267.3 / -2269.7 48.2 / 48.2
SaO2 96
Nasal Cannula flow liters per 2
minute
Physical Exam
General: Comfortable and Other (NAD)
HEENT: Normocephalic, Anicteric and Moist Mucous Membranes
Cardiovascular: S1-S2 and Regular Rhythm
Respiratory: Clear, Non-Labored Respirations and Chest Tube
GI: Soft, Non Distended and Non Tender
Neurology: Awake, Alert, Oriented and No Motor Deficits
Skin: Warm, Dry and Good Color
Labs/Micro/Reports
Lab Data
02/20/25 02:53
02/20/25 02:53
Laboratory Results
02/19/25
15:07
PT 15.7 H
INR 1.22
APTT 31.7
pH 7.33 L
pCO2 52 H
pO2 117 H
HCO3 27.4
O2 Delivery Level
Microbiology
02/19/25 11:00 Urine Urine Culture - Final
NO GROWTH
[2025-02-20] MEDS: NSS IV (13:41)
[2025-02-20 14:14] LABS: Glucose - Point of Care 160 mg/dl (70-99)
[2025-02-20 15:23] LABS: Glucose - Point of Care 118 mg/dl (70-99)
--- NOTE | 2025-02-20 16:00 | PTCARENOTE ---
pt VSS, no changes in assessment. pt OOB to chair for dinner. pt ambulated in hallway independently w/ family. no c/o pain. IS encouraged.
[2025-02-20 16:05] LABS: Glucose - Point of Care 124 mg/dl (70-99)
[2025-02-20 17:06] LABS: Glucose - Point of Care 122 mg/dl (70-99)
[2025-02-20] MEDS: CRESTOR 20 MG PO (17:07)
[2025-02-20 19:11] LABS: Glucose - Point of Care 105 mg/dl (70-99)
--- NOTE | 2025-02-20 19:56 | PTCARENOTE ---
Received pt from [facility]. pt is POD#[address] Linda. pt resting comfortably in chair, AAOx4. heart sounds distant, radial and DP pulses palpable, trace anasarca noted. lung sounds diminished throughout, spo2 98% on RA, x1 left MS CT
removed by tx. + BSx4 quadrants, abdomen soft non tender, round/obese. pt voiding clear yellow urine via connor catheter. surgical sites maintained. right IJ cordis and PIV all maintained. pt cleaned with CHG wipes, connor care provided, new
leads and gown placed. call matthews within reach. will continue to monitor
--- NOTE | 2025-02-20 20:04 | PTCARENOTE ---
Lopressor held by CVNP due to hypotension.
[2025-02-20 20:53] LABS: Glucose - Point of Care 116 mg/dl (70-99)
[2025-02-20 23:05] LABS: Glucose - Point of Care 107 mg/dl (70-99)
[2025-02-21] VITALS (13 sets, daily range): BP systolic 96–137; BP diastolic 60–78; PULSE 74; O2SAT 97–99; BMI 38.3
--- NOTE | 2025-02-21 | PTCARENOTE ---
Pt assessment unchanged, NSR on monitor. VSS. call matthews within reach. will continue to monitor.
--- NOTE | 2025-02-21 00:15 | W.PN.CT ---
Today's Communication / Plan
-
No major issues overnight.�
Cont. current meds (ASA, Plavix, Crestor, Amiodarone, BB if BP permits)�
Maintain Bautista per Urology 5 to 7 given difficult Bautista placement/hx of urethral stricture/urinary retention�
Maintain cordis �
Encourage use of IS�
Maintain insulin drip�
OOB into chair/Ambulate
Assessment / Plan
-
Assessment:
-S/P Robotic assisted MIDCAB (single-vessel bypass LUA in situ to LAD) by Dr. Linda, 02/19/25, pod#2
-Coronary artery disease involving the proximal LAD and RCA
-NSTEMI
-LVEF 60-65% per intraop BREANN
-T2DM (hgb A1C 6.1)
-Class 2 obesity (BMI 37.6)
-HTN
-HLD
-Preop Anemia
-Urethral stricture - self caths/self dilates
-Urinary retention
-Chronic inflammation of glans penis/meatus/urethral stricture S/P intraop cystoscopy, urethral dilation and Bautista catheter placement , 02/19/25
-Acute postop atelectasis
-Acute postop hypovolemia with subsequent hypervolemia
-Acute postop hypermagnesemia
Subjective
Procedure
S/P Robotic assisted MIDCAB (single-vessel bypass LUA in situ to LAD) by Dr. Linda, 02/19/25
-
Date of Service: February 21, 2025
Objective Data
-
PT 15.7 Sec (11.4-14.6) H 02/19/25 15:07
INR 1.22 02/19/25 15:07
APTT 31.7 Sec (23.4-35.0) 02/19/25 15:07
Vital Signs
Vital Signs
Temp Pulse Resp BP Pulse Ox
99.7 F 82 16 101/56 95
02/20/25 20:00 02/20/25 21:02 02/20/25 23:00 02/20/25 21:02 02/20/25 23:00
CT Intake/Output/Weight
02/20/25 02/20/25 02/21/25
06:59 18:59 06:59
Intake Total 236.6 / 340.3 655.2 / 722.2 67.0 / 722.2
Output Total 2305 / 2610 1410 / 2009 600 / 2009
Balance -2068.4 / -2269.7 -754.8 / -1287.8 -533.0 / -1287.8
SaO2: 95
[2025-02-21 01:19] LABS: Glucose - Point of Care 103 mg/dl (70-99)
[2025-02-21 03:12] LABS: Glucose - Point of Care 100 mg/dl (70-99)
[2025-02-21 03:40] LABS: Hematocrit 35.8 % (39.0-52.0); Hemoglobin 11.8 g/dL (13.0-18.0); Mean Corpuscular Hgb 28.9 pg (27.0-31.0); Mean Corpuscular Volume 87.5 fL (80.0-94.0); Platelet Count 232 10^3/uL (130-400); Red Blood Cell Count 4.09 10^6/uL (4.70-6.10); Red Cell Dist. Width 13.5 % (11.5-14.5)
[2025-02-21 04:11] LABS: Blood Urea Nitrogen 20 mg/dl (9-20); Carbon Dioxide 28 mmol/L (22-30); Chloride 104 mmol/L (98-107); Estimated Creatinine Clearance 120 ml/min; Glucose 98 mg/dl (70-99); Magnesium 2.3 mg/dl (1.6-2.3); Potassium 4.4 mmol/L (3.5-5.1); Sodium 138 mmol/L (135-145); eGFR > 60.00
[2025-02-21] MEDS: TYLENOL 1000 MG PO (05:04)
[2025-02-21 05:12] LABS: Glucose - Point of Care 94 mg/dl (70-99)
[2025-02-21 07:22] LABS: Glucose - Point of Care 93 mg/dl (70-99)
[2025-02-21] MEDS: NOVOLOG FLEXPEN 4 UNITS SC (07:30)
--- NOTE | 2025-02-21 08:30 | PTCARENOTE ---
Assumed care of patient at 0700. Pt is awake, alert, and oriented. Pt remains SR with HR 70's. BP 111/65 MAP 80. Pulse oximetry 98% on room air. Pt achieving 2000 with IS, continued use encouraged. Pt tolerating PO diet. Insulin gtt continues per
glycemic protocol. Bautista catheter remains in place per urology. 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 Right IJ cordis in place with KVO.
--- NOTE | 2025-02-21 08:58 | W.PN.CD ---
Today's Communication / Plan
-
Incentive spirometry.
Ambulate.
Hold antihypertensives.
Try to maintain fluid balance at net even as BP will permit.
Planned for staged PCI in 30 days.
Outpatient urology follow up.
CT surgery is planning on discharge today.
Impression / Plan
-
Background: 45 y/o male with obesity, HTN, HLD, urethral stricture and DM admitted with NSTEMI.
#NSTEMI
-Acute, this diagnosis is threat to life.
-Troponin peaked at 3.42.
-Cath shows 2V CAD with ostial LAD.
-S/P MIDCAB on 02/19/[address] Linda.
-Plan for staged PCI of RCA in 30 days.
-Continue amiodarone, aspirin, clopidogrel and rosuvastatin.
-Encourage incentive spirometry, ambulation.
-Pain control per CT surgery.
#HTN
-Chronic, relatively hypotensive.
-Not currently on any BP meds.
#HLD
-Chronic, stable.
-Total cholesterol = 265, LDL = 189, HDL = 34, Triglycerides = 212.
-High dose, high potency statin.
-Goal LDL < 55.
#DM
-Chronic.
-HbA1c = 6.1%.
-Took himself off metformin.
-Management per primary team.
-He would benefit from GLP-1 analog.
#Uretheral stricture
-Chronic.
-Connor catheter placed in OR.
-Urology involved, recommending maintaining connor catheter until POD #5 given difficulty placing.
-He plans to follow up with his outpatient urologist.
#Obesity
-Chronic.
-He would benefit from weight loss moving forward, including augmentation with GLP-1 analog.
Subjective/Interval History:
Metoprolol tartrate hold due to relative hypotension.
Weight is up 0.7 kg from yesterday (110.2 --> 110.9).
SaO2 = 95% on RA.
Hbg down to 11.8 from 13.2.
DATA:
Cardiac Catheterization, 02/15/2025:
Right dominant circulation with a 90% lesion in the distal RCA immediately proximal to the origin of the RPDA and a hazy, ulcerated 90% lesion in the ostium of the left anterior descending that spans the origin and involves the first diagonal.
Mildly elevated filling pressures (LVEDP = 16 mmHg at 113.9 kg).
Echo, 02/16/2025:
Normal left ventricular size and systolic function. LVEF 55%.
Basal to mid inferior wall hypokinesis.
Normal right ventricular size and function.
No significant valvular disease.
No prior study available for comparison.
CTA Chest, 02/17/2025:
No thoracic aortic aneurysm or dissection.
No other significant abnormality identified in the chest, as described above.
Physical Exam
Vital Signs/Labs
Vital Signs
Temp Pulse Resp BP Pulse Ox
36.9 C 66 16 98/70 95
02/21/25 04:00 02/21/25 02:00 02/21/25 04:59 02/21/25 02:00 02/21/25 04:59
02/19/25 02/20/25 02/21/25
11:59 11:59 11:59
Actual Weight 109 kg 110.2 kg 110.9 kg
02/21/25 03:10
02/21/25 03:10
PT 15.7 Sec (11.4-14.6) H 02/19/25 15:07
INR 1.22 02/19/25 15:07
APTT 31.7 Sec (23.4-35.0) 02/19/25 15:07
Magnesium 2.3 mg/dl (1.6-2.3) 02/21/25 03:10
Triglycerides 212 mg/dl (10-149) H 02/16/25 04:30
LDL Cholesterol, Calc 189 mg/dl 02/16/25 04:30
VLDL Cholesterol, Calc 42 mg/dl (0-30) H 02/16/25 04:30
HDL Cholesterol 34 mg/dl 02/16/25 04:30
Physical Exam
Constitutional: No acute distress and Comfortable
EENT: Anicteric and Moist mucous membranes
Cardiovascular: Rhythm & rate is regular, Pedal edema is absent, JVD pressure is normal, S1S2 is normal and Murmur/rub/gallop absent
Respiratory: Respiratory effort normal, Lungs clear to auscul., Wheeze Absent, Crackles Absent and Rhonchi Absent
GI: Soft, Distention absent, Flat, Non tender and Normal bowel sounds
Neuro/Psych: AO x 3
Data Reviewed
-
Date of Service: February 21, 2025
Medical Decision Making: Reviewed Test Results, Independent Historian Assessment and Test Interpretation
EKG: Tracing Personally Visualized and interpreted and Report Reviewed by me
Echo: Tracing Personally Visualized and interpreted and Report Reviewed by me
X-Ray/CT/US/MRI/NUC/PET: Image Personally Visualized and interpreted and Report Reviewed by me
Medical Tests (PFT, Pathology etc): Image Personally Visualized and interpreted and Report Reviewed by me
Labs: Labs Reviewed by me
Old Records: Reviewed
[2025-02-21] MEDS: SENOKOT-S 1 TABLET PO (08:59)
[2025-02-21] MEDS: PROTONIX 40 MG PO (08:59)
[2025-02-21] MEDS: PLAVIX 75 MG PO (08:59)
[2025-02-21] MEDS: TOPROL XL 25 MG PO (08:59)
[2025-02-21] MEDS: LOW STRENGTH ASPIRIN 81 MG PO (08:59)
[2025-02-21] MEDS: PACERONE 200 MG PO (08:59)
[2025-02-21] MEDS: NEURONTIN 100 MG PO (08:59)
[2025-02-21] MEDS: BACTROBAN 2% OINTMENT 1 APPLIC NASAL (09:00)
[2025-02-21] MEDS: LIDOCAINE 4% PATCH TOPICAL (09:00)
--- NOTE | 2025-02-21 09:08 | W.DCSUMMARY ---
Discharge Summary
Discharge Data
Date of Admission: 02/15/25
Date of Discharge: 02/21/25
Total time spent discharging patient (in min): 30
-
Pending Results: No
Hospital Course
Primary care physician:
Dr. Guillermo Munson
Outpatient distilling department supervisor:
Dr. Espinosa
Inpatient consultants:
CBC, electric cutter operator, urology, an dDM management [facility]
Procedures:
1. Robotic assisted MIDCAB (single-vessel bypass LUA in situ to LAD)
Primary Diagnosis:
1. Coronary artery disease involving the proximal LAD
Secondary Diagnoses:
1. Diabetes Mellitus Type II
2. Acute postop atelectasis
3. Morbidly Obese with BMI > 30
4. HTN
5. HLD
6. NSTEMI
7. Urethral stricture - self caths
HPI: 45-year-old male with history of hypertension and [id number] diabetes was admitted via the emergency department on 02/15/25 for evaluation of exertional 'squeezing' chest pain ongoing for the past several weeks. He had a similar event
in july but did not follow up with a distilling department supervisor.
Hospital course: Patient Was initially admitted on 02/15 with complaints of exertional chest pain and was ruled in for an NSTEMI. Left heart cath revealed multivessel disease and patient was taken to the OR on 02/[address] Linda for robotic assisted
MIDCAB. Patient did well postoperatively and he was extubated in the OR. Diabetes management nurse practitioners were consulted since he had an elevated A1c however patient refused metformin and other oral agents and insulin infusion was stopped
on 02/21 postoperative day 2. On 02/20 postoperative day 1 patient's left pleural chest tube was removed and urology was consulted due to the patient's history of ureteral stricture and self cathing. They recommended that the Bautista would stay in for 5
days total and to follow-up outpatient with his established urologist. On 02/21 POD #2, patient tolerated his toprol and 2-view CXR remained stable. His prescriptions were sent to his preffered pharmacy.
Home medication changes:
see below
Discharge Plan
-
Patient Disposition: Home (Routine Discharge)
Discharge Diagnosis/Procedures: MIDCAB
Condition: Good
Diet: Low Cholesterol, Low Sodium and Diabetic, Carb Controlled
Activity: No strenuous activity
Driving Restrictions: Not until seen by your Dr
Bathing Restrictions: OK to Shower
Other Services: Cardiac Rehab
Specialty Instructions: Weigh Daily- Call MD for wt gain/loss 3 lbs overnight/5 lbs in 1 week
Activity Restrictions/Additional Instructions:
please follow up with a urologist is 3-5 days about your indwelling catheter
ACTIVITY:
-No strenuous activity: no heavy lifting, pushing, pulling anything over 15 pounds for 3 weeks
-continue to use stairs as tolerated
DRIVING RESTRICTIONS:
-No driving for one month or until approved by your surgeon
WOUND CARE:
-Shower daily. Use soap & water.
-No lotions, creams or powders on incision area.
DIET:
-continue a low fat/low cholesterol diet.
-IF you are diabetic, continue carb controlled diet.
CARDIAC REHAB:
-Please make appointment to start in 5-6 weeks with your local hospital program. (See Cardiac Rehabilitation Discharge Booklet).
SPECIALTY INSTRUCTIONS:
-Weigh yourself daily. Call your physician for any weight gain/loss of 3 lbs overnight or 5 lbs in one week.
-REPORT any clicking noise or uneven appearance of your sternum to your surgeon immediately.
-If you smoke, you are instructed to quit. The [place] smoking hotline phone number is [phone]
Referrals:
CT Transitional Care Nurse [Outside] - in one to two days
(
The Cardiothoracic Transitional Care Nurse will call you to set up a visit in 1-2 days.)
[facility] [Outside]
(Cardiac Rehab Orientation appointment is on Wednesday03/27/2025@ 1:00pm.
The Cardiac Rehab gym is located on the first floor of the [facility].)
Guillermo Munson DO [Family Provider] - in four to six weeks (Please make an appointment in four to six weeks. )
Aster Young DO [Active] - in six weeks (pulm/sleep FU, PFTs)
Danette Kimball CRNP [Specified Professional Personl] - 04/06/25 10:00 am
Nathalie Gill CRNP [Specified Professional Personl] - 03/06/25 1:30 pm
Additional Discharge Medication Instructions: please discontinue your lisinopril.
Prescriptions:
New
cyclobenzaprine 10 mg Tablet
5 mg PO Q8HPRN PRN (Reason: muscle spasm) Qty: 30 0RF
clopidogrel 75 mg Tablet
75 mg PO DAILY 365 Days Qty: 90 3RF
rosuvastatin 20 mg Tablet
20 mg PO QPM Qty: 60 0RF
metoprolol succinate [Toprol XL] 25 mg tablet extended release 24 hr
25 mg PO DAILY Qty: 30 1RF
acetaminophen 325 mg Tablet
650 mg PO Q4HPRN PRN (Reason: mild pain,headache,temp >101F ) Qty: 0 0RF
pantoprazole 40 mg Tablet,Delayed Release (Dr/Ec)
40 mg PO DAILY Qty: 60 2RF
oxycodone 5 mg Tablet
2.5 mg PO Q8HPRN PRN (Reason: severe pain) Qty: 10 0RF
Continued
aspirin 81 mg tablet,delayed release (DR/EC)
81 mg PO DAILY
Discontinued
lisinopril 10 mg tablet
10 mg PO DAILY
Discharge Orders:
Discharge Patient (As Directed); Ordered 02/21/25
Ordered By: Kendra Fagan
Care Plan Goals
Care Plan Goals:
Problem: Readiness for enhanced knowledge related to diagnosis and treatment plan
Goal: Understand your diagnosis and treatment plan needs, including medications if applicable.
Instructions: Know your diagnosis, underlying causes and treatment plan options, including medications if applicable. Consult with your health care team to learn about your diagnosis and treatment plan, including medications if applicable.
Discharge Date and Time
Print Language: ROMANIAN
[2025-02-21 09:12] LABS: Glucose - Point of Care 138 mg/dl (70-99)
--- NOTE | 2025-02-21 10:19 | PN.DE.MGMTRT ---
Insulin Management
- -
02/21/2025: Diabetes Management follow up
45 year old male with PMH: HTN, HLD, CAD,Obesity, Former smoker, 3 PPD for 9 years, quit at age 20 and Diet controlled T2DM, who was admitted on 02/15 with substernal chest pain, diaphoresis and dizziness. Pt ruled in for [place], underwent urgent cardiac
catheterization demonstrating 90% distal RCA lesion, ulcerated 90% lesion in the LAD. A1C is 6.1%, (was 6.7% in 10/2024 and 10.2% in 07/2024) Cr 1.0, eGFR >60.
Pt reports that he was initially dx with DM in 07/2024, A1C was 10.2% at the time and he was started on Metformin 500mg BID. States he reduced his Metformin dose to once a day and eventually stopped taking it without doctor's orders in October 2024.
He states that Metformin is a bad drug and insists that he will NEVER take it again because there are multiple law suits about Metformin. He states he has glucose monitor at home and tests his blood sugars 1-2 times a day.
Attempted to discuss benefits of starting a GLP1 or SGLT2 and pt strongly declined any discussion about medications, stating that he is managing his care using homeopathic alternatives and that he managed to reduce his A1C by diet and taking
chromium.
Informed pt that chromium supplementation is not a substitute for medical treatment of diabetes and that he may develop kidney damage with termite treater helper use of chromium. Prior to end of our discussion, I offered to provide pt with information on GLP1s
and SGLT2 medications and pt declined stating 'Where do you get your research?...Pharma?'
Pt awake, alert, oriented, sitting up in chair, offers no complaints, able to discuss diabetes care plan
POD # 2 s/p Robotic assisted MIDCAB. Pt has been transitioned off insulin infusion this morning by [facility] team.
Glucose stable and in range, last POC was 138 after insulin infusion was stopped.
He is not a candidate for insulin given current A1C of 6.1%
Pt has again verbalized that he is not interested in taking Metformin, GLP1 or SGLT2 medications.
Pt was encouraged to follow up with his PCP to discuss alternatives for weight loss management.
Diabetes History
- -
Type of Diabetes: 2
Pre-Admission Diabetes Regimen
02/21/25
03:10
Creatinine 0.9
Lab Results
Hemoglobin A1c 6.1 % (4.0-5.6) H 02/16/25 04:30
Insulin Pump Settings
IP Diabetes Regimen
02/20/25 02/20/25 02/20/25
11:09 12:00 12:52
Glucose
POC Glucose 188 H 169 H 138 H
02/20/25 02/20/25 02/20/25
14:13 15:21 16:01
Glucose
POC Glucose 160 H 118 H 124 H
02/20/25 02/20/25 02/20/25
17:04 19:10 20:51
Glucose
POC Glucose 122 H 105 H 116 H
02/20/25 02/21/25 02/21/25
23:04 01:17 03:09
Glucose
POC Glucose 107 H 103 H 100 H
02/21/25 02/21/25 02/21/25
03:10 05:10 07:19
Glucose 98
POC Glucose 94 93
02/21/25
09:10
Glucose
POC Glucose 138 H
Meal type: Breakfast
Amount consumed: 100%
Patient Education
--- NOTE | 2025-02-21 10:30 | PTCARENOTE ---
Right IJ cordis d/c'd. 2 view x-ray done. Pt ambulated with cardiac rehab.
--- NOTE | 2025-02-21 12:08 | CM ---
Reviewed chart. Met with Mr. Almednarez to review discharge plans. He states he feels well and maybe able to go home soon. We reviewed a home visit by the Transitional Care Nurse. He is agreeable to a home visit. Prior to admission he resides with his
spouse and two daughters in a one story home with one step to enter. Prior to admission he was independent with ambulation and adls. He has a glucometer at home. He has a prescription plan . His spouse and daughters will be at school or work
during the day but he has a neighbor he can call if he needs anything. Medical work-up in progress. The discharge plan is to reurn home with spouse and two daughters and a home visit by the Transitional Care Nurse when medically stable.
--- NOTE | 2025-02-21 12:36 | PTCARENOTE ---
Pt with discharge order. Pt showered. Bautista catheter remains in place, leg bag attached. Pt to follow up with urology outpatient. Reviewed discharge instructions and Bautista care with patient. Questions addressed. Peripheral IV removed. Pt stable at
discharge.
[2025-02-21 13:07] LABS: B.E. - POC -0.7 mmol/L; Glucose - POC 99 mg/dl (70-99); HCO3 - POC 25 mmol/L (21-28); Hematocrit - POC 39 % PCV (42-52); Hemodilution- POC No; Hemoglobin Calculated - POC 13.3; Lactate - POC < 0.30 mmol/L (0.36-0.75); PCO2 - POC 41 mmHg (35-48); PO2 - POC 443 mmHg (83-108); Potassium - POC 4.1 mmol/L (3.5-5.1); Sodium - POC 140 mmol/L (136-145); Specimen Type - POC Arterial; pH - POC 7.38 (7.35-7.45)
== END 2025-02-21 12:49 | disposition home or self-care (01) | DRG 234 ==
LOC: CVICU 13:08
PROVIDERS: Anesthesiology; Internal Medicine Cardiovascular Disease; Nurse Practitioner; Nurse Practitioner Gerontology; Physician Assistant; Physician Assistant Medical; ADMITTING PHYSICIAN Internal Medicine; ATTENDING PHYSICIAN Thoracic Surgery (Cardiothoracic Vascular Surgery); CONSULT PHYSICIAN Internal Medicine; CONSULT PHYSICIAN Specialist; EMERGENCY PHYSICIAN Emergency Medicine; FAMILY PHYSICIAN Family Medicine; OTHER PHYSICIAN Thoracic Surgery (Cardiothoracic Vascular Surgery)
PROC: B2111ZZ Fluoroscopy of Multiple Coronary Arteries using Low Osmolar Contrast (ICD-10-PCS; 2025-02-15)
PROC: 4A023N7 Measurement of Cardiac Sampling and Pressure, Left Heart, Percutaneous Approach (ICD-10-PCS; 2025-02-15)
PROC: 8E0W0CZ Robotic Assisted Procedure of Trunk Region, Open Approach (ICD-10-PCS; 2025-02-19)
PROC: 0T9B80Z Drainage of Bladder with Drainage Device, Via Natural or Artificial Opening Endoscopic (ICD-10-PCS; 2025-02-19)
PROC: 02100Z9 Bypass Coronary Artery, One Artery from Left Internal Mammary, Open Approach (ICD-10-PCS; 2025-02-19)
PROC: B24BZZ4 Ultrasonography of Heart with Aorta, Transesophageal (ICD-10-PCS; 2025-02-19)
DX: I21.4 Non-ST elevation (NSTEMI) myocardial infarction (principal); D62 Acute posthemorrhagic anemia; J98.11 Atelectasis; I25.10 Atherosclerotic heart disease of native coronary artery without angina pectoris; E78.00 Pure hypercholesterolemia, unspecified; I10 Essential (primary) hypertension; E11.65 Type 2 diabetes mellitus with hyperglycemia; E66.812 Obesity, class 2; N35.911 Unspecified urethral stricture, male, meatal; E87.70 Fluid overload, unspecified; E86.1 Hypovolemia; E83.41 Hypermagnesemia; Z68.38 Body mass index [BMI] 38.0-38.9, adult; Z79.82 Long term (current) use of aspirin; Z79.899 Other long term (current) drug therapy; Z82.49 Family history of ischemic heart disease and other diseases of the circulatory system; Z87.891 Personal history of nicotine dependence
CPT/HCPCS: 71045; 71046; 71250; 71275; 80048; 80053; 80061; 81003; 81015; 82248; 82330; 82565; 82805; 82810; 82947; 82962; 83036; 83735; 84132; 84302; 84484; 84520; 85014; 85018; 85025; 85027; 85049; 85610; 85730; 86850; 86900; 86901; 86920; 87086; 93005; 93306; 93312; 93320; 93325; 93458; 93880; 93923; 93931; 96374; 96376; 99152; 99285; C1894; J2916; Q9967

== ENCOUNTER 2025-03-28 06:16 | Day surgery (SDC) | payer BC, SELFPAY ==
[2025-03-28] VITALS (13 sets, daily range): BP systolic 109–150; BP diastolic 64–104; BMI 39.6
[2025-03-28 07:24] LABS: Glucose - Point of Care 121 mg/dl (70-99)
[2025-03-28] MEDS: NSS 1000 IV ×2 (07:30→09:03)
[2025-03-28 07:32] LABS: Hematocrit 40.7 % (39.0-52.0); Hemoglobin 13.3 g/dL (13.0-18.0); Mean Corp Hgb Conc. 32.7 g/dL (33.0-37.0); Mean Corpuscular Hgb 28.7 pg (27.0-31.0); Mean Corpuscular Volume 87.7 fL (80.0-94.0); Mean Platelet Volume 9.5 fL (7.4-10.4); Platelet Count 283 10^3/uL (130-400); Red Blood Cell Count 4.64 10^6/uL (4.70-6.10); Red Cell Dist. Width 12.5 % (11.5-14.5); White Blood Cell Count 8.1 10^3/uL (4.8-10.8)
[2025-03-28 07:50] LABS: Blood Urea Nitrogen 23 mg/dl (9-20); Calcium 9.1 mg/dl (8.4-10.2); Carbon Dioxide 29 mmol/L (22-30); Chloride 109 mmol/L (98-107); Estimated Creatinine Clearance > 125 ml/min; Glucose 124 mg/dl (70-99); Potassium 4.2 mmol/L (3.5-5.1); Sodium 143 mmol/L (135-145); eGFR > 60.00
--- NOTE | 2025-03-28 09:01 | ITS.CL.ANGIO ---
Account Support Manager - Angioplasty
Angioplasty
Procedure Report:
CARDIAC CATHETERIZATION REPORT
Date of Procedure: 03/28/2025
Referring: Cisco Linda M.D.
INDICATION: Staged PCI after MIDCAB.
PROCEDURE:
1. Left heart catheterization.
2. Coronary angiography.
3. Bypass angiography.
4. Successful PCI of the distal RCA.
A total of 44 minutes of procedural/moderate sedation was utilized. An independent medical sales specialist was present to assist with and help manage the patient's level of consciousness and physiologic status.
ACCESS:
1. 6 Kenyan left right artery using a modified Seldinger technique.
CATHETERS:
1. 5 Kenyan KEEGAN.
2. 5 Kenyan JL 4.
3. 6 Kenyan AL 0.75 guiding catheter.
HEMODYNAMIC DATA
Weight (kg): 111.3
AO (s/d/x, mmHg): 138/91/113
LV (s/x mmHg): 144/25 (A wave to 33)
LEFT VENTRICULOGRAPHY: Not performed.
CORONARY ANGIOGRAPHY
Dominance: Right.
Left Main: Large size, bifurcating vessel. There is no coronary artery disease.
LAD: Normal size vessel giving rise to at least 1 diagonal. There is a hazy, 90% lesion in the ostium of the LAD. The distal vessel supplied by patent LUA graft.
Ramus: Congenitally absent.
Circumflex: Normal size, nondominant vessel giving rise to 2 obtuse marginals. There is no coronary artery disease.
RCA: Normal size, dominant vessel. There are serial 20% lesions in the proximal vessel with tapering of the distal RCA, culminating in a focal, 90% distal RCA lesion.
BYPASS GRAFT ANGIOGRAPHY
LUA to LAD: Normal size graft with end-to-side anastomosis to the mid LAD. There is a focal, 40% tapering of the LUA graft immediately proximal to the anastomosis.
INTERVENTION(S)
1. Successful PCI of the 90% distal RCA lesion (Medtronic Jaime Edmunds 2.25 x 26 SUBHA, postdilated with a 2.25 NC balloon) with reduction in stenosis to 0%, maintaining MARY ALICE-3 flow.
Narrative:
The decision was made to proceed with percutaneous coronary intervention. The diagnostic catheter was removed over a wire and a 6Fr AL 0.75 guiding catheter was advanced to the aortic root and seated in the right coronary artery. Additional heparin
was given and a Power Turn Flex wire was advanced into the RPDA. The 90% distal RCA lesion was predilated with a 2.0 x 12 semi-compliant balloon to 12 nicho. The semi-compliant balloon was removed and a Medtronic Jaime Edmunds 2.25 x 26 drug-eluting
stent was advanced. The stent was deployed at 12 atmospheres. The stent balloon was removed. A 2.25 x 20 noncompliant balloon was advanced into the stent and the stent was postdilated to 12 atmospheres. Angiography was performed in orthogonal views,
confirming good stent expansion and an excellent angiographic result. The coronary wire was withdrawn and the guide was disengaged from the artery. The catheter was removed over a standard J-wire.
Closure Device: Vascular band.
Radiation (mGy): 772.17
DAP (cm2.Gy): 62.1728
Fluoroscopy time (minutes): 7.1
CONCLUSIONS
1. Right dominant circulation with a 90% lesion in the ostium of the LAD, serial 20% lesions in the proximal RCA with tapering of the distal RCA, culminating in a focal, 90% distal RCA lesion, status post prior bypass (patent LUA to LAD with a 40%
focal tapering of the LUA graft immediately proximal to its anastomosis with the LAD), now status post successful PCI of the 90% distal RCA lesion (Medtronic [place] Edmunds 2.25 x 26 SUBHA, postdilated with a 2.25 NC balloon) with reduction in
stenosis to 0%, maintaining MARY ALICE-3 flow.
2. Severely elevated filling pressure (LVEDP = 25 mmHg at 111.3 kg) with evidence of diastolic dysfunction (A wave to 33 mmHg).
RECOMMENDATIONS:
1. Expectant management after cardiac catheterization via left radial approach.
2. Limited weight bearing on the left wrist for one week.
3. Maintain dual antiplatelet therapy with aspirin and clopidogrel for at least 12 months, followed by aspirin indefinitely.
4. Continue OMT/GDMT as hemodynamics will tolerate.
5. Start furosemide 40 mg p.o. daily with BMP in 1 week for elevated filling pressures.
6. Referral to cardiac rehab.
Copy to: Cisco Linda M.D., Maiar Mauro D.O., Frank Wood M.D., Ph.D.
Norman Espinosa DO, FACC, FACP
[2025-03-28] MEDS: LASIX 40 MG IV (09:54)
--- NOTE | 2025-03-28 13:09 | W.PN.UPDATE ---
Update Note
Progress Note Update
Pt seen post RCA PCI. Left radial cath site without ht/bleeding. OOB ambulating. Post EKG NSR 70s no acute changes. Pt understands importance of DAPT w/asa, plavix. Elevated EDP and was given lasix 40mg IV x1 with excellent diuresis. Will start on
lasix 40mg po daily, rx sent to pharmacy, and lab slip for BMP in 1 week. Cardiac rehab consulted. Followup at [facility] as scheduled. Home today if cath site/tele remain stable.
== END 2025-03-28 13:41 | disposition home or self-care (01) ==
LOC: CATH 06:16
PROVIDERS: ATTENDING PHYSICIAN Internal Medicine Cardiovascular Disease; FAMILY PHYSICIAN Internal Medicine; OTHER PHYSICIAN Thoracic Surgery (Cardiothoracic Vascular Surgery)
DX: I25.10 Atherosclerotic heart disease of native coronary artery without angina pectoris (principal); Z95.1 Presence of aortocoronary bypass graft; Z79.02 Long term (current) use of antithrombotics/antiplatelets; Z79.82 Long term (current) use of aspirin; I10 Essential (primary) hypertension; E11.9 Type 2 diabetes mellitus without complications
CPT/HCPCS: 99152; 99153; 80048; 82962; 85027; 85347; 93005; 93459; C1725; C1874; C1887; C1894; C9600; Q9967